=== PATIENT | female | born 1950 | race Caucasian/White ===

== ENCOUNTER → 2018-05-31 | Outpatient (CLI) | payer MEDICARE, SELFPAY ==
--- NOTE | 2018-05-31 09:55 | RAD_ITS ---
STUDY: X-RAY - LEFT KNEE REASON FOR EXAM: Arthritis. TECHNIQUE: 4 view(s) of the knee. COMPARISON: None. FINDINGS: Normal visualized distal femur. Normal visualized proximal tibia and fibula. Normal proximal tibiofibular articulation. There are marginal osteophytes and severe joint space narrowing of the medial femorotibial compartment. Normal lateral femorotibial compartment. There are marginal osteophytes and mild joint space narrowing of the patellofemoral articulation. There is mild vascular calcification. RAD/Knee 4 or More Views IMPRESSION: Arthrosis of the medial femorotibial and patellofemoral compartments. Electronically Signed: Ronn Tinsley MD at 15:23 EDT Tel , Service support ,
== END | disposition home or self-care (01) ==
LOC: HPRAD 09:55
PROVIDERS: Family Provider Internal Medicine; PCP Internal Medicine; Referring Provider Orthopaedic Surgery; Visit Provider Orthopaedic Surgery
DX: M17.12 Unilateral primary osteoarthritis, left knee (principal)
CPT/HCPCS: 73564

== ENCOUNTER 2018-10-05 08:30 | Outpatient (RCR) | payer MEDICARE, SELFPAY ==
--- NOTE | 2018-03-15 18:39 | HP.OTEVAL ---
Patient's Visit Information KAR HODGE is a 67 year old F, referred to Occupational Therapy by Scotty Thomas, with a diagnosis of trigger finger R middle. Date of Evaluation: 03/15/18 Occupational Therapist: Kendra Chawla - Subjective Subjective: Pt seen for initial occupational therapy evaluation for trigger finger R middle finger and R ring finger. Pt had trigger finger release 03/07/18 to R middle finger and R ring finger as well as removal of ganglion cyst R forearm. Pt is left hand dominent however uses her right hand frequently for functional living tasks. Indep w/ BADLs/IADLs. Pt is very active and wants to get all her ROM and strength back in her right hand to complete BADL/IADLs and hobbies as prior. - Objective Objective/Observation: pt has sutters in R hand and forearm, pt demo slight edema R wrist/forearm. Pt demo decreased flexion R digits and decreased ability to make composite fist. - ROM Wrist: R 65/92 L 67/93 MP: R ring -2/72, R middle 0/74, L ring 0/95, L middle 0/95 PIP: R ring -3/69, R middle 0/73, L ring 0/100, L middle 0/105 DIP: R ring 0/23, R middle 0/30, L ring 0/67, L middle 0/70 - Strength Phd Intern: R DNT, L 55# Lateral Pinch: R DNT, L 10# Tripod Pinch: R DNT, L 8# - Edema Other: slight edema noted R hand and R wrist - Sensation Sensation Comments: No numbness or tingling - Quick DASH-Disab of Arm,Shoulder& Hand Quick DASH Score: 72.7250 - Goals Goal:: Pt will progress with R hand heat and vent aircraft mechanic strength to 50# to assist with abilty to open all containers and complete BADLs independently. Goal:: Pt will progress w/ R ring finger AROM MP joints by 20' to increase abilty to make composite fist. Pt will progress w/ R middle finger AROM MP joints by 20' to increase ability to complete all functional living tasks independently. Goal:: Pt will demo no pain greater than 1/10 in R hand by d/c from OT services with movement. Goal:: Pt will be educated on scar massage and scar mngmt techniques with good understanding and demo 100%x Goal:: Pt will be educated on R UE HEP with good understanding and demo 100%x - Rehabilitation General Assessment: Pt demo decreased AROM and strength of R hand. Pt would benefit from direct occupational therapy services to increase AROM R digits, increase R hand heat and vent aircraft mechanic strength, educate on scar mngmt techniques, educate on R UE HEP to increase pt's ability to return to PLOF and get back to hobbies. Rehabilitation Potential: Excellent - Anticipated Interventions Anticipated Interventions: A/AAROM/PROM, Strengthening, Edema Control, Scar Care, Massage, Modalities, Orthoses, Joint Protection/Energy Conservation, Fine Motor Coord/Jesús, ADL Training, Education re Self-Bandaging Techniques, Education re Skin Care and Precautions, Education re Self Massage Techniques, Education re Correct Donning Tech,Care&Wearing Sched Comp Garments, Home Program - Visit Plan Frequency: 1-2x /Week Duration: 6 Weeks General Plan: Pt would benefit from direct occupational therapy services to increase AROM R digits, increase R hand heat and vent aircraft mechanic strength, educate on scar mngmt techniques, educate on R UE HEP to increase pt's ability to return to PLOF and get back to hobbies. TEXT: Thank you for the opportunity to evaluate your patient. For Medicare and Medicare HMO plans, please review the plan of care and approve it. It will need to be FAXED BACK to us at [phone] for Medicare purposes. Please let me know if there are questions or concerns regarding this plan of care. Physician Signature: Date:
--- NOTE | 2018-04-12 07:55 | HP.OTREVAL ---
Scotty Thomas, It has been my pleasure to treat KAR HODGE over the last 9 visits for trigger finger R middle. Please see the progress note below for an update on the occupational therapy plan of care! Subjective: pt arrives stating her finger is just very stiff- today- states she is doing everything she can do with her hand. pt reports she is perfoming her ADLs and IADls ind. and performing her HEP Objective/Function: right RF DIP 60. right RF PIP 95. right electron beam machine welder setter strength 45#. pts ROM of RF varies about 5 degress. pt has made great gains in use of her right hand. Plan Visits in this POC: 12 Plan: pt to return to for possible d/c Goals - Goals Goal:: Pt will progress with R hand electron beam machine welder setter strength to 50# to assist with abilty to open all containers and complete BADLs independently. Goal:: Pt will progress w/ R ring finger AROM MP joints by 20' to increase abilty to make composite fist. Pt will progress w/ R middle finger AROM MP joints by 20' to increase ability to complete all functional living tasks independently. Goal:: Pt will demo no pain greater than 1/10 in R hand by d/c from OT services with movement. Goal:: Pt will be educated on scar massage and scar mngmt techniques with good understanding and demo 100%x Goal:: Pt will be educated on R UE HEP with good understanding and demo 100%x Anticipated Interventions Anticipated Interventions: A/AAROM/PROM, Strengthening, Edema Control, Scar Care, Massage, Modalities, Orthoses, Joint Protection/Energy Conservation, Fine Motor Coord/Jesús, ADL Training, Education re Self-Bandaging Techniques, Education re Skin Care and Precautions, Education re Self Massage Techniques, Education re Correct Donning Tech,Care&Wearing Sched Comp Garments, Home Program Please do not hesitate to contact me at [phone] by phone or if you have questions or concerns regarding this new plan of care! Sincerely, Isadora Connell, OTR/L, CHT
--- NOTE | 2018-09-30 10:54 | HP.OT.NRP ---
HP - Discharge Summary - Patient Information KAR HODGE was seen in my office for initial evaluation on 03/15/18. The following Plan of Care was established for this patient: Initial Frequency: 1-2x /Week Initial Duration: 6 Weeks Plan: cont w/ prior POC - Anticipated Interventions Anticipated Interventions: A/AAROM/PROM, Strengthening, Edema Control, Scar Care, Massage, Modalities, Orthoses, Joint Protection/Energy Conservation, Fine Motor Coord/Jesús, ADL Training, Education re Self-Bandaging Techniques, Education re Skin Care and Precautions, Education re Self Massage Techniques, Education re Correct Donning Tech,Care&Wearing Sched Comp Garments, Home Program This patient was last seen in our office 05/05/18. Pertinent comments regarding their Occupational therapy will appear below: Pt last seen for OT 05/05/18. Pt was making good progress with R hand flexion and following R UE HEP. Pt did not meet all goals secondary to non returning. D/C OT POC. At this point I will be discontinuing this patient from occupational therapy. I would be happy to see this patient again in the future if found appropriate by the physician. Thank you! Kendra Chawla
--- NOTE | 2018-10-11 18:49 | HP.OTREVAL ---
Scotty Thomas, It has been my pleasure to treat KAR HODGE over the last 14 visits for trigger finger R middle. Please see the progress note below for an update on the occupational therapy plan of care! Subjective: arrived showing therapist increased swelling in R hand that she is very frustrated with limiting her ability to wear jewelry and move hand as she would like with decreased strength of her dominent hand. no pain Objective/Function: Pt demonstrates decreased computer information science professor strength of R hand down to 25# and L computer information science professor strength 65#. Pt demo increased edema of R hand and digits, R RF 7.5', R MF 8', palm 21'. Pt would benefit from direct occupational therapy serivices to continue to increase R hand strength for BADLs and functional living tasks, decrease edema R hand with use of modalities as needed. EDucate pt on self massage technqies and edema control for at home w/ good understanding. Rec OT 2-3x/wk x 2 wks total 6 visits. Plan Frequency: 2-3x /Week Duration: 2 Weeks Visits in this POC: total 6 visits Plan: see re-eval Goals - Goals Goal:: Pt will progress with R hand computer information science professor strength to 50# to assist with abilty to open all containers and complete BADLs independently. Goal:: Pt will progress w/ R ring finger AROM MP joints by 20' to increase abilty to make composite fist. Pt will progress w/ R middle finger AROM MP joints by 20' to increase ability to complete all functional living tasks independently. Goal:: Pt will demo no pain greater than 1/10 in R hand by d/c from OT services with movement. Goal:: Pt will demo decreased edema R RF and MF by .5' to assist w/ ability to wear rings on fingeres again. Goal:: Pt will be educated on scar massage and scar mngmt techniques with good understanding and demo 100%x Goal:: Pt will be educated on R UE HEP with good understanding and demo 100%x Anticipated Interventions Anticipated Interventions: A/AAROM/PROM, Strengthening, Edema Control, Scar Care, Massage, Modalities, Orthoses, Joint Protection/Energy Conservation, Fine Motor Coord/Jesús, ADL Training, Education re Self-Bandaging Techniques, Education re Skin Care and Precautions, Education re Self Massage Techniques, Education re Correct Donning Tech,Care&Wearing Sched Comp Garments, Home Program Please do not hesitate to contact me at [phone] by phone or if you have questions or concerns regarding this new plan of care! Sincerely, Kendra Chawla
--- NOTE | 2018-12-08 11:27 | HP.OT.NRP ---
HP - Discharge Summary - Patient Information KAR HODGE was seen in my office for initial evaluation on 03/15/18. The following Plan of Care was established for this patient: Initial Frequency: 2-3x /Week Initial Duration: 2 Weeks Plan: see re-eval - Anticipated Interventions Anticipated Interventions: A/AAROM/PROM, Strengthening, Edema Control, Scar Care, Massage, Modalities, Orthoses, Joint Protection/Energy Conservation, Fine Motor Coord/Jesús, ADL Training, Education re Self-Bandaging Techniques, Education re Skin Care and Precautions, Education re Self Massage Techniques, Education re Correct Donning Tech,Care&Wearing Sched Comp Garments, Home Program This patient was last seen in our office 10/05/18. Pertinent comments regarding their Occupational therapy will appear below: Pt last seen 10/05/18 for re-eval for OT services, to decrease edema and increase strength and ROM of R hand. Pt had returned to dr and stated its still healing. D/C OT services at this time. At this point I will be discontinuing this patient from occupational therapy. I would be happy to see this patient again in the future if found appropriate by the physician. Thank you! Kendra Chawla
== END 2018-10-05 19:00 | disposition home or self-care (01) ==
LOC: OT 08:30
PROVIDERS: Family Provider Internal Medicine; PCP Internal Medicine; Referring Provider Orthopaedic Surgery; Visit Provider Orthopaedic Surgery
DX: M65.331 Trigger finger, right middle finger (principal)
CPT/HCPCS: 97035; 97110; 97140; 97166; 97167; 97168; 97530

== ENCOUNTER → 2018-12-31 08:45 | Outpatient (CLI) | payer MEDICARE, SELFPAY ==
[2018-12-31 06:34] VITALS: BMI 34.2
--- NOTE | 2018-12-31 08:45 | LIP_PTH ---
PATIENT: KAR HODGE LOC: INGE U#:[id number] AGE/SX: 74/F ROOM: RE12/31/[address]: Dr. Edmundo Aranda MD : 1950 BED: DIS: SPEC #: [id number] RECD: 01/02/19 07:41 STATUS: MICHELLE SEGUNDO #: [id number] TRINA: 12/31/18 08:[address]: Edmundo Aranda DEPT: SURGICAL PATHOLOGY RECD BY: Crispin Garcia ENTERED: 01/02/19 09:38 SP TYPE: LIPOMA OTHR DR: Dr. Rosina Johnson MD Tissues: Wrist, NOS Procedures: Surgery Specimen Level III HEADER OPERATION: Excision left wrist lipoma PRE-OP DIAGNOSIS: Left wrist lipoma TISSUE SUBMITTED: Left wrist tissue MICROSCOPIC DIAGNOSIS Left wrist lipoma, excision: Mature adipose tissue, consistent with lipoma. SJ:marisol 01/03/19 MICROSCOPIC DESCRIPTION Slides are reviewed. GROSS DESCRIPTION Received in fixative is one container labeled with the patient's name and designated left wrist lipoma. The specimen consists of an irregular piece of yellow adipose tissue measuring 4 x 3 x 1.5 cm. Sections reveal yellow adipose cut surfaces without area of hemorrhage, necrosis or cystic degeneration. Railroad Yard Worker sections are submitted in two cassettes. / SJ:marisol 01/02/19 TC:1 CPT: 06815
== END ==
PROVIDERS: Family Provider Internal Medicine; PCP Internal Medicine; Visit Provider Surgery
DX: D17.22 Benign lipomatous neoplasm of skin and subcutaneous tissue of left arm (principal)
CPT/HCPCS: 88304

== ENCOUNTER → 2019-01-02 09:45 | Outpatient (CLI) | payer MEDICARE, SELFPAY ==
[2018-12-31 06:34] VITALS: BMI 34.2
== END ==
PROVIDERS: Family Provider Internal Medicine; PCP Internal Medicine; Referring Provider Surgery; Visit Provider Surgery
DX: D17.22 Benign lipomatous neoplasm of skin and subcutaneous tissue of left arm (principal)

== ENCOUNTER → 2019-01-24 12:59 | Outpatient (CLI) | payer MEDICARE, SELFPAY ==
[2018-12-31 06:34] VITALS: BMI 34.2
--- NOTE | 2019-01-24 13:01 | RAD_ITS ---
STUDY: X-RAY - ABDOMEN/PELVIS REASON FOR EXAM: Female, 68 years old. History of bowel obstruction. TECHNIQUE: AP supine and upright views of the abdomen and pelvis. COMPARISON: None. FINDINGS: Mild increased markings at the lung bases suggestive of bibasilar atelectasis and/or infiltrates. Dilated small bowel loops in the right side of the abdomen with the air-fluid levels. Moderate amount of fecal material is seen in the colon down to the region of the rectum. There is no demonstrated free abdominal air. The visualized liver, spleen and kidneys are grossly normal in size and morphology. Normal soft tissue structures. There are diffuse degenerative changes of the visualized lumbar spine. RAD/Abd Inc Decub and/or Erect IMPRESSION: Dilated small bowel loops in the right side of the abdomen with air-fluid levels. Fecal material is seen throughout the colon. Increased markings at the lung bases suggestive of bibasilar atelectasis and/or infiltrates. Electronically Signed: Vipul Mercedes, at 14:25 EST , Service support ,
== END ==
PROVIDERS: Family Provider Internal Medicine; PCP Internal Medicine; Referring Provider Surgery; Visit Provider Surgery
DX: K56.609 Unspecified intestinal obstruction, unspecified as to partial versus complete obstruction (principal)
CPT/HCPCS: 74019

== ENCOUNTER 2019-01-25 14:13 | Inpatient (IN) | payer MEDICARE, SELFPAY ==
--- NOTE | 2019-01-24 07:04 | HP_ITS ---
Intake Vital Signs 01/24/19 Body Mass Index (BMI) 34.2 01/24/19 Height 5 ft 9 in 01/24/19 Weight: 235 lb 01/24/19 Body Mass Index (BMI) 34.7 01/24/19 Blood Pressure 153/74 H 01/24/19 Blood Pressure Location Rt brachial 01/24/19 Blood Pressure Position Sitting 01/24/19 Respiratory Rate 18 01/24/19 Pulse Rate 82 01/24/19 Pulse Source Monitor 01/24/19 Temperature 97.8 F 01/24/19 Temperature Source Oral 01/24/19 Pulse Ox 99 01/24/19 Oxygen Delivery Method room air Intake Visit Reasons: bowel obstruction Chief Complaint: Follow up bowel obstruction Reefer Engineer Required: No Accompanied by: Is patient in pain?: No Allergies No Known Allergies Allergy (Verified 01/24/19 14:05) Medications naproxen 500 mg tablet 500 mg PO Q12H 04/26/17 [History Confirmed 01/24/19] hydrochlorothiazide 25 mg tablet 25 mg PO DAILY 10/23/18 [History Confirmed 01/24/19] multivitamin capsule 1 cap PO DAILY 01/24/19 [History] omega-3 fatty acids 500 mg capsule 500 mg PO DAILY 01/24/19 [History Confirmed 01/24/19] PFSH Medical History (Updated 01/24/19 @ 19:01 by Edmundo Aranda MD) Partial small bowel obstruction (Acute) Lipoma of left forearm (Acute) Bowel obstruction (Acute) Arthritis (Acute) Hemorrhoids (Acute) Knee pain (Acute) Surgical History (Updated 01/24/19 @ 14:23 by Nikole Pretty) History of umbilical hernia repair (Acute) History of appendectomy (Acute) Hx of cholecystectomy (Acute) Family History Father Diabetes Parkinson disease Social History (Updated 01/24/19 @ 19:04 by Edmundo Aranda MD) Smoking Status: Former smoker alcohol intake: current alcohol intake frequency: a few times a month Alcohol type: wine details: social substance use type: does not use caffeine: Yes what type of physical activity do you participate in: walking seatbelt use: always do you feel safe at home: Yes HPI HPI HPI: KAR HODGE, is a 68 F who presents to the office today for HPI HPI Surgical H&P: Yes HPI: KAR HODGE, is a 68 F who presents to the office today for surgical consultation regarding small bowel obstruction. Primary care physician is Dr. Rosina Johnson. The patient was hospitalized in the [facility] with 4 days with acute onset of abdominal pain nausea. Findings were consistent with acute small bowel obstruction with particular dilated loops of bowel in the right lower quadrant. No NG tube was placed. She was observed for over 24 hours. Then she finally had a Gastrografin exam showing high-grade partial obstruction. She was observed for another 2 days. Symptoms somewhat improved then she was discharged on clear liquids instruction to continue to drink clear liquids for 2 days. The patient's had a previous lap scopic cholecystectomy and her previous remote appendectomy through a right lower quadrant incision. She is up-to-date with her colonoscopy. That was performed for her on November 03, [address] Chey Harrington. Diverticulosis was noted in the sigmoid. It was stated that the appendiceal orifice and ileocecal valve was inspected. There is no evidence of tumor at that time. Now upon further questioning the patient is evident that she does not feel normal yet. The pain is gone but she still has persistent tenderness in the right lower quadrant. Abdominal x-rays are obtained at the [facility] today demonstrates dilated loops of small bowel with air-fluid levels in the right lower quadrant. This is highly suspicious for persistent obstruction. The patient now states that she actually has not been feeling well for approximately a month with intermittent episodes of abdominal pain and cramping. Information from [facility] in [facility] January 17, [address] scan with fluid-filled dilated small bowel loops consistent with incomplete mechanical small bowel obstruction mildly enlarged mesenteric lymph nodes in the right lower quadrant trace free peritoneal fluid severe sigmoid diverticulosis. On January 21, 2019 plain films show slight decreased caliber of air-fluid dilated loops of small bowel impression with slight improvement. The patient had a very small bowel movement last night. There is been no nausea or vomiting. She notes persistent tenderness in the right lower quadrant. Sitting resting still she has no abdominal pain. There is no current nausea. She has been able to tolerate clear liquids ROS General General: Yes weight change and fatigue; no appetite, colon cancer, breast cancer or weakness HEENT HEENT: No difficulty swallowing, eye injury, eye surgery, swollen glands or hoarseness Endo Endocrine: No thyroid disease, diabetes mellitus, thyroid cancer, Hair loss, heat intolerance or cold intolerance Skin Skin: No rash or changing moles Breast Breast: No left breast lump, right breast lump, nipple discharge, breast pain, abnormal mammogram, abnormal US or breast enlargement Musc Musculoskeletal: Yes arthritis; no back problems, rheumatoid arthritis, gout or joint pain Cardio Cardiovascular: No murmur, pacemaker, heart disease, atrial fibrillation, high blood pressure, heart attack, heart stent, palpitations, shortness of breat with exertion or chest pain Psych Psychiatric: No depression, anxiety or hearing voices Resp Respiratory: No shortness of breath, No sleep apnea, No cough, No COPD, Yes asthma, No emphysema, No wheezing Gastro Gastrointestinal: Yes abdominal pain, No nausea or vomiting, No diarrhea, No constipation, No blood in stool, No acid reflux, Yes hemorrhoids, No ulcers, No gallbladder problem, No black,tarry stools Thomas Hematologic: No blood thinners, No blood disorders, No bleeding, No anemia, No blood clots Neuro Neurologic: No system reviewed and no additional complaints, except as docu, No as per HPI, No abnormal walking, No abnormal hearing, No abnormal movements, No abnormal speech, No behavioral changes, No burning sensations, No confusion, No seizure-like activity, No unsteadiness, No dizziness, No localized weakness, No frequent falls, No headache(s), No lack of coordination, No loss of vision, No memory loss, No numbness, No other visual disturbances, No radiating pain, No restless legs, No sensory deficit, No fainting, No tingling, No tremor(s), No weakness, No other Exam Const General: cooperative, healthy appearing, comfortable, no acute distress Nutritional Appearance: obese Orientation: alert, awake [place] Head: normal to inspection Chest Chest palpation & inspection: normal inspection of the chest Breast Palpation: No nipple discharge Resp Effort & Inspection: normal respiratory effort Auscultation: clear to auscultation bilaterally Cardio Rate: regular rate Rhythm: regular rhythm Heart Sounds: no murmurs GI Palpation: soft Other: Occasional tinkles, mild tenderness to deep palpation right lower quadrant, no rebound or guarding, no mass, no gross inguinal defects, well- healed umbilical incision and right lower quadrant incision Other: No gross inguinal defects Skin General: no rashes or lesions noted Neuro Cognition: normal cognition Extrem General: no calf tenderness bilaterally Psych Affect: normal affect Assessment & Plan Problems 1. Partial small bowel obstruction K56.600 Plan 67-year-old female with signs and symptoms consistent with non-resolved partial small bowel obstruction with findings highly suspicious for adhesive disease right lower quadrant. She does not appear to be an acute surgical distress requiring emergency operation tonight. However it also does not appear that she is completely resolving her symptom complex. After divulging that she has been sick for over a month prior to the acute episode I have significant concern that she will not completely resolve this episode. I recommend that we obtain tomorrow a barium small bowel follow- through in attempt at further definition is the possible etiology to this process. I have alerted the patient that I am strongly concerned that she will require a diagnostic laparoscopy with possible laparoscopic lysis of adhesions or possible conversion to an open technique. She is aware of the potential need for bowel resection as well. She has had an opportunity to ask and have questions answered. She will stay on clear liquids tonight we will obtain the small bowel follow-through first thing tomorrow morning. We will proceed with surgery if it is deemed to be appropriate tomorrow. I appreciate the opportunity of assisting with her surgical care. CC: Dr. Rosina Aranda M.D., F.A.C.S. Orders Orders: Abd Inc Decub and/or Erect Today K56.609 Upper GI/w Small Bowel Today K56.609 Medications New: omega-3 fatty acids 500 mg PO DAILY multivitamin capsule 1 cap PO DAILY Coding Level of Care Code Off vis,est,level 4 Diagnoses Partial small bowel obstruction K56.600 01/24/191903 <Electronically signed by Edmundo pierre MD> Date _ Edmundo Aranda MD Barium small bowel follow-through was obtained today. Findings are consistent with persistent significant partial small bowel obstruction. The patient remains tender particularly in the right lower quadrant of the abdomen. I have fully discussed treatment options with the patient and her . I am recommending a laparoscopy with conversion to laparotomy for inspection as potential source of adhesions or internal hernia source of persistent obstruction. She has had an opportunity to ask and have questions answered. She is direct admitted and we will proceed directly with definitive surgical treatment. Edmundo Aranda M.D., F.A.C.S.
[2019-01-24 14:08] VITALS: BMI 34.2
[2019-01-25] VITALS (7 sets, daily range): BP systolic 95–135; BP diastolic 54–82; PULSE 57–76; RESP 14–16; TEMP 36.1–36.8; O2SAT 89–99; BMI 34.5
--- NOTE | 2019-01-25 | IMM_PTH ---
PATIENT: KAR HODGE LOC: MS3 U#:[id number] AGE/SX: 68/F ROOM: MS309 RE01/25/[address]: Dr. Edmundo Aranda MD : 1950 BED: 1 DIS: 01/28/2019 SPEC #: [id number] RECD: 01/30/19 12:04 STATUS: MICHELLE REQ #: [id number] TRINA: 01/25/19 00:[address]: Edmundo Aranda DEPT: IMMUNOHISTOCHEMISTRY RECD BY: Beverly Kovacs ENTERED: 01/30/19 12:08 SP TYPE: IMMUNO OTHR DR: Dr. Rosina Johnson MD Tissues: Colon, NOS Procedures: Synapto (add) NAPSIN A (add) CD31 (add) CD56 (add) CEA (add) CHROMO (add) CK20 (add) CK7 (add) CK8 (add) VORA-2 (add) KI-67 (add) P53 (add) TTF1 (add) FACTOR VIII (add) Pankeratin (initial) CDX2 (add) NSE (add) S-100 (add) PHYSICIAN & INSTITUTION [place] [id number] SPECIMEN INFORMATION: Tissue Source: Ileocolotomy Clinical Info: Partial small bowel obstruction Specimen Number: [id number] Block 9 CPT code: 38121, 39509 x17 METHODOLOGY: Deparaffinized sections of prefer/formalin-fixed tissue or PAP/DQ stained slides are incubated with monoclonal/polyclonal antibodies/oligonucleotide probes. Localization is made via biotin free immunoperoxidase method. Appropriate controls are performed and reacted as expected. Results on target cell population are indicated in the following table: RESULTS: ANTIBODY / CLONE RESULT Block 9 AE1-3 (AE1/AE3/PCK26) positive CK7 (OV-TL12/30) negative CK8 (86lsopO76) positive CK20 (KS20.8) negative VORA-2 (SP21) positive CDX2 (MON6163X) positive CD31 (ABELARDO/70A) negative Factor VIII (R Ag) negative S-100 (4C4.9) negative CD56 (123C3.D5) positive Chromo (LK2H10) positive Synapto (polyclonal) positive NSE Neuron Specific Enolase positive TTF-1 (8G7G3/1) negative Napsin A (Rabbit Polyclonal) negative CEA (11-7/TF-3HB-1) negative P53 (DO-7) negative Ki-67 (30-9) positive, 1% to rare These tests were developed and their performance characteristics determined by [facility]. They may not have been cleared or approved by the U.S. Food and Drug Administration. The FDA has determined that such clearance or approval is not necessary. The above immunohistochemical/dualISH markers are ordered and reviewed by the Pathologist. INTERPRETATION: Small bowel, segmental resection: Consistent with neuroendocrine tumor G1 (NET G1 tumor) AM:nixon 01/31/19
--- NOTE | 2019-01-25 08:35 | RAD_ITS ---
STUDY: AIR-CONTRAST UPPER GI SERIES AND SMALL BOWEL FOLLOW-THROUGH EVALUATION. REASON FOR EXAM: Female, 68 years old. Possible small bowel obstruction. FLUOROSCOPY TIME (if supplied): ( 42 seconds ) minutes/seconds. 34 images were obtained. TECHNIQUE: The patient ingested barium. An air contrast upper GI series was obtained. Following this, a small bowel follow-through examination was performed. COMPARISON: None. FINDINGS: The esophagus is unremarkable. There is no evidence of obstruction. No evidence of gastroesophageal reflux. Small hiatal hernia without reflux. No mass lesion is seen. The stomach is unremarkable. There is no evidence of ulceration. No mass lesion is present. 2 small diverticula are seen in the second portion of the duodenum. A small bowel follow-through examination was then obtained. There is delay of transit within the small bowel. The proximal small bowel loops are minimally distended although the mid and distal small bowel loops are distended. The transition point appears to be within the distal jejunum. A small amount of gas is seen within the right hemicolon and rectum. Findings are suggestive of incomplete small bowel obstruction. RAD/Upper GI/w Small Bowel IMPRESSION: Findings suggestive of a partial small bowel obstruction with the transition point in the region of the distal jejunum. Small diverticula are seen in the second portion of the duodenum. Electronically Signed: Vipul Mercedes, at 14:56 EST , Service support ,
[2019-01-25 14:10] LABS: Hematocrit 42.9 % (37-47); Hemoglobin 14.6 g/dL (12.0-15.0); Mean Corpuscular Hgb 29.3 pg (27.0-32.0); Platelet Count 270 K/mm3 (150-450); RBC Distribution Width CV 13.3 % (11.6-14.6); RBC Distribution Width SD 41.2 fl (35.1-43.9); Red Blood Count 4.99 M/mm3 (4.2-5.4); White Blood Count 6.6 K/mm3 (4.4-11.0)
[2019-01-25 14:21] LABS: Anion Gap 4 (5-15); BUN 6 mg/dL (7-18); BUN/Creat Ratio 8.8 RATIO (10-20); Calcium,Total 9.1 mg/dL (8.5-10.1); Chloride 108 mmol/L (98-107); Creatinine, Serum 0.68 mg/dL (0.55-1.02); EST Glomerular Filtration Rate 91 mL/min (>60); Est Glom Filt Rate - Afr Amer 110 mL/min (>60); Glucose 89 mg/dL (74-106); Potassium 3.3 mmol/L (3.5-5.1); Sodium Level 141 mmol/L (136-145)
--- NOTE | 2019-01-25 14:22 | PCM.PN.BLA ---
Progress Note Patient presented for an outpatient upper GI with small bowel follow. Images demonstrate a high-grade partial small bowel obstruction. Patient was discussed with Dr. Aranda, who is recommending direct admit and add-on for a diagnostic laparoscopy with possible laparoscopic lysis of adhesions or possible conversion to an open technique and possible bowel resection today. Patient to have STAT CBC and BMP and EKG. Patient also to have NG tube placed prior to surgery. Patient does note that she had a solid small bowel movement last night. She has had nothing to eat or drink other than the Barium today. Patient will proceed with the recommended surgical procedure as discussed at yesterday outpatient office visit. Patient is agreeable and has no further questions at this time. Or has been notified appropriately. Dr. Aranda has been updated with the active plan. Radiology is updated with the current plan. And I have spoke to patient's nurse, Bg, who is aware of the plan.
[2019-01-25] MEDS: Lactated Ringers 1,000 ML 100 ML IV ×3 (15:06→20:46)
--- NOTE | 2019-01-25 16:09 | DCINST_ITS ---
Discharge Diet: Light diet - advance as tolerated - if you have questions about your diet instructions, please talk to you doctor. Discharge Activity: May Not Drive - for 3-5 days or while taking narcotic pain medicine. May shower in (days): 0 - You may shower after your Lopez drain is removed Lifting Restrictions: 10 pounds Call your doctor if your incision/area has: Continuous Slow Oozing, Sudden Increased Bleeding, Increased Pain/ Swelling, Increased Redness, Foul Smelling Discharge Call your doctor if you observe: Fever of 101 or Higher Suture Line Care: Avoid Pulling/Pushing, Avoid Pinching/Bending Additional Dressing/Incision Instructions:: Change or remove dressing in 2 days. Leave steri-strips in place for 1 week. Allergies/Adverse Reactions: Allergies No Known Allergies Allergy (Verified 01/25/19 14:40) Medications to take at Discharge naproxen 500 mg tablet 500 mg PO Q12H 04/26/17 hydrochlorothiazide 25 mg tablet 25 mg PO DAILY 10/23/18 multivitamin capsule 1 cap PO DAILY 01/24/19 Krill/Om-3/Dha/Epa/Phospho/Ast [Krill Oil 500 mg Softgel] 500 mg PO DAILY 01/25/19 Primary Care Physician: Rosina Johnson MD [Primary Care Provider] - Test Results: Test results from this visit will be discussed in further detail at your follow- up appointment, if applicable. Please Follow Up With: Edmundo Aranda MD - [phone] When: Call to make an appointment to be seen in about 10 days.
--- NOTE | 2019-01-25 16:35 | COL_PTH ---
PATIENT: KAR HODGE LOC: MS3 U#:[id number] AGE/SX: 68/F ROOM: MS309 RE01/25/[address]: Dr. Edmundo Aranda MD : 1950 BED: 1 DIS: 01/28/2019 SPEC #: [id number] RECD: 01/26/19 08:36 STATUS: MICHELLE RAYMOND #: [id number] TRINA: 01/25/19 16:[address]: Edmundo Aranda DEPT: SURGICAL PATHOLOGY RECD BY: Srinivas Jin ENTERED: 01/26/19 10:45 SP TYPE: COLON OTHR DR: Dr. Rosina Johnson MD Tissues: Small intestine biopsy Procedures: Surgery Specimen Level V HEADER OPERATION: Exploratory laparoscopic mobilization of right colon PRE-OP DIAGNOSIS: Partial small bowel obstruction K56.600 TISSUE SUBMITTED: Ileocolectomy MICROSCOPIC DIAGNOSIS Small and large bowel segment, ileocolectomy: Neuroendocrine tumor. See cancer check list below. AM:sp 01/31/19 COMMENT SMALL BOWEL CANCER SUMMARY: (Ileum neuroendocrine tumor) Procedure: Ileocolic resection Tumor Site: Ileum Tumor Size: 3.5 x 1.5 x 1.5 cm Tumor Focality: Unifocal Histologic Grade: G1 (well-differentiated neuroendocrine tumor) Mitotic Rate: Less than 2 mitosis per 2 mm2. Ki67 Labeling Index: Less than 3% Microscopic Tumor Extension: Tumor invades visceral peritoneum (serosa). Margins: All margins are uninvolved by tumor Margins examined - proximal and distal mucosal margins Lymph-Vascular Invasion: Present Large mesenteric masses (greater than 2 cm): Not identified. Regional Lymph Nodes: Number of lymph nodes involved by tumor - 14 Total number of lymph nodes examined - 22 Additional Pathologic Findings: Mesenteric tumor deposits - less than 2 cm and matted lymph nodes with metastatic tumor. Pathologic Stage: T4, N2, MX The above summary is in compliance with [employer] of [place] Path[employer] (CAP) Cancer Protocols Checklist and [place] Joint Committee on Cancer (AJCC), Staging Manual, 7th Ed. Immunohistochemistry ([id number]) supports the above diagnosis. Case has been reviewed in consultation with Dr. Scott who concurs with the above diagnosis. IDC:SJ MICROSCOPIC DESCRIPTION Slides are reviewed. GROSS DESCRIPTION Received in fixative is one container labeled with the patient's name and designated ileocolectomy. The specimen consists of a 10 cm segment of small bowel with attached 6 cm of large bowel. The serosal surface at approximately 17 cm from the small bowel margin of resection displays a serosal nodule that is white-evans in color, measuring 1.5 cm in greatest dimension. The mucosal of the small bowel for the most part is grossly unremarkable. Located approximately 14 cm from the small bowel margin of resection and 8 cm from the large bowel margin of resection and 4 cm proximal to the ileocecal valve displays a yellow-evans, firm nodule measuring 3.5 x 1.5 x 1.5 cm. The lumen in area of the mass contains a calcified fecalith measuring 3 cm in greatest dimension. The lumen in this area is significantly narrowed (50%). An appendix is not identified. Also present free in the container is a segment of bowel measuring 6 cm in greatest dimension. The mucosa is smooth and glistening. No mass lesions are identified in this segment of bowel. The attached fibrofatty tissue contains a number of nodules that are firm in consistency. Insurance Healthcare Consultant sections are submitted as follows: 1 - mucosal margins, 2 - ileocecal valve, 3 - uninvolved small and large bowel, 4 - fragment of bowel free in container, branch service representative sections, 5 through 9 - one bisected subserosal nodule, 10 - one branch service representative section of one large subserosal nodule, 11 - multiple lymph nodes, 12 - one lymph node bisected, 13 - multiple lymph nodes, 14 - one lymph node bisected, 15 - multiple lymph nodes, 16 - one large subserosal nodule, matted lymph nodes. /AM:sp 01/27/19 TC: 0 CPT: 89353
[2019-01-25] MEDS: Bupivacaine 0.25% 30 ML Vial ×2 (19:00)
[2019-01-25] MEDS: BUPIVACAINE LIPOSOME/PF 20 ML VIAL OPERA.SITE (19:00)
[2019-01-25] MEDS: 0.9% Normal Saline (Pres. free 10 ML Vial (19:00)
--- NOTE | 2019-01-25 19:41 | OP.PCM_ITS ---
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 Bilateral tap block Description of Surgical Findings:: Timeout informed consent was obtained. 68-year-old female taken the operative placement table underwent general endotracheal intubation anesthesia. NG tube placed by anesthesia with good results. The abdomen sterilely prepped and draped. 0.25% Marcaine was initially used for local anesthetic. At the end of the procedure I utilized 0.25% Marcaine mixed with 20 cc of Exparel diluted with saline to approximately 90 cc of solution to perform a bilateral tap block Skin sites were pre-anesthetized a vertical infraumbilical incision was created sharp dissection carried down through substance to direct access was gained to the peritoneum and is on catheter was inserted the abdomen was insufflated with CO2 to a pressure of 10 minutes mercury pressure. The patient had received 2 g of cefotetan intravenously preoperatively. Inspection revealed grossly distended small bowel throughout. 5-minute trocar was placed in the low mid abdomen and in the right mid abdomen patient was placed in a right side elevated position with Trendelenburg and upon inspection there appeared to be what appeared to be a fixed firm mass at the terminal ileum close to the ileocecal valve. This appeared to be the source of the obstruction. Laparoscopically I mobilized the terminal ileum incised white line of Toldt and and freed up the ascending colon. At that point I felt due to the degree of bowel distention from her bowel obstruction that I would convert to a open. I made an infraumbilical midline incision and I placed a wound protector was able to palpate the lesion withdrew the terminal ileum and realized there was a metastatic firm deposit in the mesentery. I used a harmonic scalpel to transect the mesentery down to the root of the small bowel and over to about the mid right colon. Further mobilization of the right colon was hampered as she had had a previous cholecystectomy in the transverse colon proximally was adherent to the resection area. I did this much blunt dissection as I could. I used a DANIA-75 stapler to transect the terminal ileum and the ascending colon. I could not achieve an easy up anastomosis I had a lengthy my midline incision so that I could gain exposure. I then placed the small bowel side to side to the large bowel placed holding sutures of 4-0 silk made enterotomies. There was some succus with a small amount of barium that extruded there from that was rapidly aspirated. I used a 75 mm stapler to perform a functional xfog-io-jmar end-to-end anastomosis. I then used a TA's 60 stapler to secure the enterotomy sites. I did use a running 4-0 silk to further Lembert and invert the staple line. The bowel appeared to be nicely viable appeared to have a good blood supply was placed back within the abdomen. Then I closed the midline wound with a running #1 Prolene. On length skin incision superiorly I had to go through previous umbilical hernia repair site and I removed 0 Nurolon sutures that were there. I used the Prolene down a running fashion. I then reinsufflated the abdomen and we performed a bilateral tap block with the Exparel Marcaine and saline mixture. This was performed under lap scopic control bilaterally. Finally the abdomen was irrigated and aspirated free of fluid. Visualization challenging due to the edema of the small bowel swelling of the small bowel distention. I felt however that I got a good solid anastomosis. I felt that I remove the gross amount of disease focally at the tumor site with the suspected metastatic deposit in the mesentery. The patient had had a CT scan while she was hospitalized in [place] for this exact same problem which did demonstrate some enlarged lymph nodes of the mesentery. The abdomen is then allowed to deflate of CO2. Skin edges were approximate interrupted 4-0 Monocryl indicated. 1/4 inch Lopez drain was placed down the midline wound exited inferiorly and secured there with safety pin and 3-0 nylon. Steri-Strips Telfa OpSite dressings applied were appropriate. Dry gauze dressings applied to the abdomen. Sponge and instrument and needle counts were reported to surgically correct. Blood loss was minimal. She tolerated the procedure well was taken to the recovery area in satisfactory condition without apparent complication. Specimen includes the ileal colon. Drains quarter-inch Lopez in the midline wound subcutaneous space. Blood loss minimal. Edmundo Aranda M.D., F.A.C.S. Type of Anesthesia:: General Anesthesiologist: Jesse Perry
[2019-01-25] MEDS: Ketorolac 15 MG/ML Vial IV (22:00)
[2019-01-25] MEDS: Ondansetron 4 MG/2 ML Vial IV (22:00)
[2019-01-25] MEDS: 0.9% Saline Lock 10 ML Syringe IV (22:00)
[2019-01-26] VITALS (7 sets, daily range): BP systolic 101–129; BP diastolic 44–70; PULSE 66–90; RESP 16–18; TEMP 36.6–37.8; O2SAT 92–95; BMI 34.5
[2019-01-26] MEDS: Morphine 2 MG/ML Syringe IV ×2 (00:47→16:10)
--- NOTE | 2019-01-26 05:53 | PN.SURG_ITS ---
Patient Problems: Active and Suspected Problems (Last Updated 01/24/19 @ 14:02 by Nikole Pretty) Small intestine malignant neoplasm (Acute) Subjective: Pt doing well Concerned about acute shingles of forehead treated by Dr Wilson, dermatology, with acyclovir--places eye at risk Comfortable Walking, no flatus - Physical Exam Vitals/I&O's: Vital Signs Temp Pulse Resp BP Pulse Ox 97.8 F 81 16 112/44 L 92 01/26/19 05:07 01/26/19 05:07 01/26/19 05:07 01/26/19 05:07 01/26/19 05:07 Oxygen Flow Rate (L/min) 2 Oxygen Delivery Method Room Air Weight: 233 lb 14.567 oz Body Mass Index (BMI) 34.5 Intake and Output for Last 24 Hours 01/24/19 01/25/19 01/26/19 23:59 23:59 23:59 Intake Total 2200 / 2200 30 / 30 Output Total 200 / 650 450 / 450 Balance 2000 / 1550 -420 / -420 General: Alert, Oriented x3 Lungs: Clear to auscultation Abdomen: Soft, Non Tender, Bowel Sounds Not Present, Distended Laboratory Results 01/25/19 14:00: WBC 6.6, RBC 4.99, Hgb 14.6, Hct 42.9, MCV 86.0, MCH 29.3, MCHC 34.0, RDW Std Deviation 41.2, RDW Coeff of Charlie 13.3, Plt Count 270, MPV 10.0 01/25/19 14:00: Sodium 141, Potassium 3.3 L, Chloride 108 H, Carbon Dioxide 29.0, Anion Gap 4 L, BUN 6 L, Creatinine 0.68, Est GFR (MDRD) Af Amer 110, Est GFR (MDRD) Non-Af 91, BUN/Creatinine Ratio 8.8 L, Glucose 89, Calcium 9.1 Current Medications Acetaminophen (Tylenol) 650 mg PO Q6H PRN PRN PRN Reason: Pain Score 1-3/Temp > 100.7 F Hydrocodone Bitart/Acetaminophen (Solvang 5mg-325mg) 1 - 2 tablet PO Q4H PRN PRN PRN Reason: Pain Score 1-10/10 Lactated Ringer's () 1,000 mls @ 100 mls/hr IV .Q10H KALYAN Last Admin: 01/25/19 20:46 Dose: 100 mls/hr Documented by: Ketorolac Tromethamine (Toradol) 15 mg IV Q6H PRN PRN PRN Reason: Pain Score 1-10/10 Last Admin: 01/25/19 22:00 Dose: 15 mg Documented by: Morphine Sulfate () 2 - 4 mg IV Q1H PRN PRN PRN Reason: Pain Score 1-10/10 Last Admin: 01/26/19 00:47 Dose: 2 mg Documented by: Morphine Sulfate () 2 - 4 mg IV Q1H PRN PRN PRN Reason: Pain Score 1-10/10 Ondansetron HCl (Zofran) 4 mg IV Q8H PRN PRN PRN Reason: NAUSEA Last Admin: 01/25/19 22:00 Dose: 4 mg Documented by: Sodium Chloride () 10 - 40 ml IV UD PRN PRN Reason: SALINE FLUSH Last Admin: 01/25/19 22:00 Dose: 10 ml Documented by: Throat Lozenges (Cepacol Sore Throat Lozenge) 2 lozenge MUCOUS MEM Q2H PRN PRN PRN Reason: SORE THROAT Medical Necessity - Tobacco Use Smoking Status: Former smoker Assessment/Plan All Active Problems (Last Updated 01/24/19 @ 14:02 by Nikole Pretty) Small intestine malignant neoplasm (Acute) Partial small bowel obstruction (Acute) Lipoma of left forearm (Acute) Bronchitis (Acute) Sinusitis (Acute) Acute shingles forehead. Will treat. IV acyclovir on backorder Mobilize pt DC andrade Keep NGT for now
[2019-01-26] MEDS: Ketorolac 15 MG/ML Vial IV ×3 (06:14→20:11)
[2019-01-26] MEDS: Lactated Ringers 1,000 ML 100 ML IV ×2 (06:14→16:33)
[2019-01-26 06:16] LABS: Absolute Lymphocyte Count 0.91 X10^3/uL (0.83-4.51); Absolute Neutrophil Count 11.2 X10^3/uL (2.0-7.7); Basophil# 0.02 X10^3/uL; Basophil% 0.2 % (0-1); Hemoglobin 14.1 g/dL (12.0-15.0); Lymphocyte # 0.91 X10^3/ul (4.0); Lymphocyte % 7.1 % (19-41); Mean Corp Hgb Conc 34.4 g/dL (32-36); Mean Corpuscular Hgb 29.7 pg (27.0-32.0); Mean Corpuscular Volume 86.3 fL (81-99); Mean Platelet Vol. 10.8 fl (6.2-12.0); Monocyte# 0.54 X10^3/uL; Monocyte% 4.2 % (0-10); NRBC Flagged by Analyzer 0 % (0-5); Neutrophil # 11.24 X10^3/uL (2.7-7.7); Neutrophil % 88.1 % (47-70); Platelet Count 274 K/mm3 (150-450); RBC Distribution Width CV 13.4 % (11.6-14.6); RBC Distribution Width SD 41.7 fl (35.1-43.9); Red Blood Count 4.75 M/mm3 (4.2-5.4); White Blood Count 12.8 K/mm3 (4.4-11.0)
[2019-01-26 06:46] LABS: Anion Gap 10 (5-15); BUN 9 mg/dL (7-18); BUN/Creat Ratio 9.6 RATIO (10-20); Calcium,Total 8.5 mg/dL (8.5-10.1); Chloride 108 mmol/L (98-107); Creatinine, Serum 0.94 mg/dL (0.55-1.02); EST Glomerular Filtration Rate 63 mL/min (>60); Est Glom Filt Rate - Afr Amer 76 mL/min (>60); Estimated Creatinine Clearance 59.03 ml/min; Glucose 123 mg/dL (74-106); Potassium 3.4 mmol/L (3.5-5.1); Sodium Level 142 mmol/L (136-145)
--- NOTE | 2019-01-26 08:30 | NURSING ---
ng clamped and pt ambulatory in hallway after infection control checked status of pt possible shingles on forehead and cleared pt to be ambulatory in halls
[2019-01-26] MEDS: Acyclovir 800 MG Tablet NG (09:31)
[2019-01-26] MEDS: Potassium Chloride 10mEq/100mL 10 MEQ/100 ML IV.SOLN. 100 MEQ IV BOLUS ×3 (09:31→11:21)
[2019-01-26] MEDS: BENZOCAINE/MENTHOL 1 LOZENGE 2 LOZENGE MUCOUS MEM (09:33)
--- NOTE | 2019-01-26 11:00 | CASEMGMT ---
RN JOLEEN CATALOGUE COMPILER CM to room to meet with patient for initial transition planning/care coordination assessment. ALEX GOODRICH introduced self and role at [facility]. Pt voices understanding and consents to assessment at this time. Pt resting in bed in no distress at this time. @ bedside. Pt is A/O at this time and answers all questions appropriately. Care providers, pharmacy, and demographics verified at this time. PCP: Elizabeth Specialists: Manoj Figueroa Pharmacy: [facility] Insurance: [employer] [facility] Prescription Benefit: Yes Living Will/HPOA: Has both LW and HCPOA, who is her , Alexey. LNOK: , Alexey Living Arrangements: Independent prior to surgery. Lives with her , who is supportive and can assist as needed. Transportation: Pt states drives self and states no transportation concerns at this time. drives. DME: Denies using any DME and denies needs. HHC/SNF: No history of either. No needs identified. Pt wishes to return home and states has no concerns with going home at time of discharge. CM to follow for any discharge planning/needs. Pt/ voice no further concerns/needs at this time. Advised them to ask for CM if any further questions/concerns/needs arise. They voice understanding. Pt d/c plan: Home Plan: Home Day GARCIA RN, CM
--- NOTE | 2019-01-26 12:12 | NURSING ---
At start of shift this RN and Alicia, primary RN- spoke with Ness with infection control regarding proper isolation for active shingles. Also, concerned because we need patient to walk in hallways and want to be sure it is safe for others on the unit. Pt has 2 small dry areas to forehead and is currently on acyclovir. Determined that no isolation needed. Warning to those that have not had chicken pox or chicken pox vaccine is visible on door of patient's room.
--- NOTE | 2019-01-26 13:04 | NURSING ---
pt had low grade fever @ approx. 1110-encouraged to use I.S. and pt did, celsa ambulatory and up in hallway/chair temp now normal 99.0 ta
[2019-01-27 00:34] VITALS: BP 121/58; PULSE 89; RESP 16; TEMP 36.8; O2SAT 94
[2019-01-27] MEDS: Acetaminophen 650 MG/20 ML UDC NG (00:38)
[2019-01-27] MEDS: Lactated Ringers 1,000 ML 100 ML IV (02:25)
[2019-01-27 05:13] LABS: Absolute Lymphocyte Count 1.29 X10^3/uL (0.83-4.51); Basophil# 0.02 X10^3/uL; Basophil% 0.2 % (0-1); Eosinophil# 0.08 X10^3/uL; Eosinophils% 0.9 % (0-5); Hematocrit 35.5 % (37-47); Hemoglobin 12.1 g/dL (12.0-15.0); Lymphocyte # 1.29 X10^3/ul (4.0); Lymphocyte % 14.1 % (19-41); Mean Corp Hgb Conc 34.1 g/dL (32-36); Mean Corpuscular Hgb 29.7 pg (27.0-32.0); Mean Corpuscular Volume 87.2 fL (81-99); Mean Platelet Vol. 10.1 fl (6.2-12.0); Monocyte# 0.69 X10^3/uL; Monocyte% 7.5 % (0-10); NRBC Flagged by Analyzer 0 % (0-5); Neutrophil # 7.03 X10^3/uL (2.7-7.7); Neutrophil % 76.8 % (47-70); Platelet Count 216 K/mm3 (150-450); RBC Distribution Width CV 13.6 % (11.6-14.6); RBC Distribution Width SD 43.4 fl (35.1-43.9); Red Blood Count 4.07 M/mm3 (4.2-5.4); White Blood Count 9.2 K/mm3 (4.4-11.0)
[2019-01-27 05:31] LABS: Anion Gap 6 (5-15); BUN 13 mg/dL (7-18); Calcium,Total 8.1 mg/dL (8.5-10.1); Chloride 107 mmol/L (98-107); Creatinine, Serum 0.77 mg/dL (0.55-1.02); EST Glomerular Filtration Rate 79 mL/min (>60); Est Glom Filt Rate - Afr Amer 96 mL/min (>60); Estimated Creatinine Clearance 55.49 ml/min; Glucose 91 mg/dL (74-106); Potassium 3.2 mmol/L (3.5-5.1); Sodium Level 140 mmol/L (136-145)
--- NOTE | 2019-01-27 06:16 | PCM.PN.SRG ---
Patient Problems: Active and Suspected Problems (Last Updated 01/24/19 @ 14:02 by Nikole Pretty) Small intestine malignant neoplasm (Acute) Subjective: Patient generally feeling improved. She is starting to feel gas pains. She is becoming more mobile. No current nausea - Physical Exam Vitals/I&O's: Vital Signs Temp Pulse Resp BP Pulse Ox 98.3 F 89 16 121/58 H 94 01/27/19 00:34 01/27/19 00:34 01/27/19 00:34 01/27/19 00:34 01/27/19 00:34 Oxygen Flow Rate (L/min) 2 Oxygen Delivery Method Room Air Weight: 233 lb 14.567 oz Body Mass Index (BMI) 34.5 Intake and Output for Last 24 Hours 01/25/19 01/26/19 01/27/19 23:59 23:59 23:59 Intake Total 2200 / 2200 2933.20 / 3063.20 1146.67 / 1146.67 Output Total 200 / 650 1275 / 1475 200 / 200 Balance 2000 / 1550 1658.20 / 1588.20 946.67 / 946.67 Lungs: Clear to auscultation Abdomen: Bowel Sounds Present, Soft, Non Tender Laboratory Results 01/26/19 05:38: WBC 12.8 H, RBC 4.75, Hgb 14.1, Hct 41.0, MCV 86.3, MCH 29.7, MCHC 34.4, RDW Std Deviation 41.7, RDW Coeff of Charlie 13.4, Plt Count 274, MPV 10.8, Immature Gran % (Auto) 0.400, Neut % (Auto) 88.1 H, Lymph % (Auto) 7.1 L, Canyon % (Auto) 4.2, Eos % (Auto) 0.0, Baso % (Auto) 0.2, Absolute Neuts (auto) 11.2 H, Absolute Lymphs (auto) 0.91, Nucleated RBC % 0 01/26/19 05:38: Sodium 142, Potassium 3.4 L, Chloride 108 H, Carbon Dioxide 24.0, Anion Gap 10, BUN 9, Creatinine 0.94, Estim Creat Clear Calc 59.03, Est GFR (MDRD) Af Amer 76, Est GFR (MDRD) Non-Af 63, BUN/Creatinine Ratio 9.6 L, Glucose 123 H, Calcium 8.5 01/26/19 08:40: Carcinoembryonic Ag Pending 01/27/19 05:04: WBC 9.2, RBC 4.07 L, Hgb 12.1, Hct 35.5 L, MCV 87.2, MCH 29.7, MCHC 34.1, RDW Std Deviation 43.4, RDW Coeff of Charlie 13.6, Plt Count 216, MPV 10.1, Immature Gran % (Auto) 0.500, Neut % (Auto) 76.8 H, Lymph % (Auto) 14.1 L, Canyon % (Auto) 7.5, Eos % (Auto) 0.9, Baso % (Auto) 0.2, Absolute Neuts (auto) 7.0, Absolute Lymphs (auto) 1.29, Nucleated RBC % 0 01/27/19 05:04: Sodium 140, Potassium 3.2 L, Chloride 107, Carbon Dioxide 27.0, Anion Gap 6, BUN 13, Creatinine 0.77, Estim Creat Clear Calc 55.49, Est GFR (MDRD) Af Amer 96, Est GFR (MDRD) Non-Af 79, BUN/Creatinine Ratio 17.0, Glucose 91, Calcium 8.1 L Current Medications Acetaminophen (Tylenol Liquid) 650 mg NG Q6H PRN PRN PRN Reason: Pain Score 1-3/Temp > 100.7 F Last Admin: 01/27/19 00:38 Dose: 650 mg Documented by: Hydrocodone Bitart/Acetaminophen ([place] 5mg-325mg) 1 - 2 tablet PO Q4H PRN PRN PRN Reason: Pain Score 1-10/10 Lactated Ringer's () 1,000 mls @ 100 mls/hr IV .Q10H KALYAN Last Admin: 01/27/19 02:25 Dose: 100 mls/hr Documented by: Potassium Chloride () 10 meq in 100 mls @ 100 mls/hr IV BOLUS Q1H KALYAN Stop: 01/27/19 08:44 Ketorolac Tromethamine (Toradol) 15 mg IV Q6H PRN PRN PRN Reason: Pain Score 1-10/10 Last Admin: 01/26/19 20:11 Dose: 15 mg Documented by: Morphine Sulfate () 2 - 4 mg IV Q1H PRN PRN PRN Reason: Pain Score 1-10/10 Last Admin: 01/26/19 16:10 Dose: 2 mg Documented by: Morphine Sulfate () 2 - 4 mg IV Q1H PRN PRN PRN Reason: Pain Score 1-10/10 Ondansetron HCl (Zofran) 4 mg IV Q8H PRN PRN PRN Reason: NAUSEA Last Admin: 01/25/19 22:00 Dose: 4 mg Documented by: Sodium Chloride () 10 - 40 ml IV UD PRN PRN Reason: SALINE FLUSH Last Admin: 01/25/19 22:00 Dose: 10 ml Documented by: Throat Lozenges (Cepacol Sore Throat Lozenge) 2 lozenge MUCOUS MEM Q2H PRN PRN PRN Reason: SORE THROAT Last Admin: 01/26/19 09:33 Dose: 2 lozenge Documented by: Medical Necessity - Tobacco Use Smoking Status: Former smoker Assessment/Plan All Active Problems (Last Updated 01/24/19 @ 14:02 by Nikole Pretty) Small intestine malignant neoplasm (Acute) Partial small bowel obstruction (Acute) Lipoma of left forearm (Acute) Bronchitis (Acute) Sinusitis (Acute) Will DC NG tube. Continue to mobilize patient Routine dressing changes Will initiate clear liquids at noon CEA level still pending
--- NOTE | 2019-01-27 06:28 | PCM.PN.BLA ---
Progress Note Hypokalemia being replaced Patient has history of chronically low potassium. Edmundo Aranda M.D., F.A.C.S.
[2019-01-27 06:34] VITALS: BP 128/71; PULSE 88; RESP 16; TEMP 36.9; O2SAT 94
[2019-01-27] MEDS: Potassium Chloride 10mEq/100mL 10 MEQ/100 ML IV.SOLN. 100 MEQ IV BOLUS ×6 (06:39→21:13)
[2019-01-27 07:15] VITALS: O2SAT 94
[2019-01-27 07:50] VITALS: BP 141/68; PULSE 88; RESP 16; TEMP 37.2; O2SAT 94
[2019-01-27] MEDS: Ketorolac 15 MG/ML Vial IV (11:49)
--- NOTE | 2019-01-27 12:08 | CASEMGMT ---
LW/POA forms not on file, SW let pt and know that the forms are not on file. SW asked pt to bring forms in as able, pt states understanding. BENITO Salas
[2019-01-27 14:00] VITALS: BP 130/66; PULSE 86; RESP 18; TEMP 36.9; O2SAT 98
[2019-01-27 15:36] LABS: Carcinoembryonic Antigen 0.9 ng/mL (0.0-4.7)
--- NOTE | 2019-01-27 16:56 | PCM.PN.BLA ---
Progress Note Excellent progress, stool and flatus Less discomfort Chromosomal Disorders Counselor colored urine Will replace potassium, recheck in a.m. Advance diet STROKE Vital Signs/Narrative: Vital Signs Temp Pulse Resp BP Pulse Ox 01/27/19 14:00 98.5 F 86 18 130/66 H 98
[2019-01-27] MEDS: Lactated Ringers 1,000 ML 50 ML IV (18:27)
--- NOTE | 2019-01-27 20:01 | NURSING ---
pt walked a full lap in the greene. tolerated well.
[2019-01-27 21:03] VITALS: BP 143/77; PULSE 84; RESP 18; TEMP 36.9; O2SAT 92
[2019-01-27] MEDS: HYDROcodone Bitartrate/Apap 5/325 Tablet PO (21:08)
[2019-01-28 04:12] VITALS: BP 130/64; PULSE 78; RESP 16; TEMP 36.8; O2SAT 95
[2019-01-28] MEDS: 0.9% Saline Lock 10 ML Syringe IV (05:54)
[2019-01-28] MEDS: Ketorolac 15 MG/ML Vial IV (05:55)
--- NOTE | 2019-01-28 06:24 | PCM.PN.SRG ---
Patient Problems: Active and Suspected Problems (Last Updated 01/24/19 @ 14:02 by Nikole Pretty) Small intestine malignant neoplasm (Acute) Subjective: Making progress, some burping, less lower gas, no stool overnight, less pain - Physical Exam Vitals/I&O's: Vital Signs Temp Pulse Resp BP Pulse Ox 98.2 F 78 16 130/64 H 95 01/28/19 04:12 01/28/19 04:12 01/28/19 04:12 01/28/19 04:12 01/28/19 04:12 Oxygen Flow Rate (L/min) 2 Oxygen Delivery Method Room Air Weight: 233 lb 14.567 oz Body Mass Index (BMI) 34.5 Intake and Output for Last 24 Hours 01/26/19 01/27/19 01/28/19 23:59 23:59 23:59 Intake Total 2933.20 / 3063.20 4103.34 / 4103.34 400 / 400 Output Total 1275 / 1475 1225 / 1225 950 / 950 Balance 1658.20 / 1588.20 2878.34 / 2878.34 -550 / -550 General: Alert, Oriented x3, Cooperative Lungs: Clear to auscultation Abdomen: Bowel Sounds Present, Soft, Non Tender - wound clean, minimal drainage Laboratory Results 01/26/19 08:40: Carcinoembryonic Ag 0.9 Current Medications Acetaminophen (Tylenol Liquid) 650 mg NG Q6H PRN PRN PRN Reason: Pain Score 1-3/Temp > 100.7 F Last Admin: 01/27/19 00:38 Dose: 650 mg Documented by: Hydrocodone Bitart/Acetaminophen ([place] 5mg-325mg) 1 - 2 tablet PO Q4H PRN PRN PRN Reason: Pain Score 1-10/10 Last Admin: 01/27/19 21:08 Dose: 1 tablet Documented by: Lactated Ringer's () 1,000 mls @ 50 mls/hr IV .Q20H KALYAN Last Admin: 01/27/19 18:27 Dose: 50 mls/hr Documented by: Morphine Sulfate () 2 - 4 mg IV Q1H PRN PRN PRN Reason: Pain Score 1-10/10 Last Admin: 01/26/19 16:10 Dose: 2 mg Documented by: Morphine Sulfate () 2 - 4 mg IV Q1H PRN PRN PRN Reason: Pain Score 1-10/10 Ondansetron HCl (Zofran) 4 mg IV Q8H PRN PRN PRN Reason: NAUSEA Last Admin: 01/25/19 22:00 Dose: 4 mg Documented by: Potassium Chloride (K-Dur) 20 meq PO BIDCM KALYAN Last Admin: 01/27/19 17:14 Dose: 20 meq Documented by: Sodium Chloride () 10 - 40 ml IV UD PRN PRN Reason: SALINE FLUSH Last Admin: 01/28/19 05:54 Dose: 10 ml Documented by: Throat Lozenges (Cepacol Sore Throat Lozenge) 2 lozenge MUCOUS MEM Q2H PRN PRN PRN Reason: SORE THROAT Last Admin: 01/26/19 09:33 Dose: 2 lozenge Documented by: Medical Necessity - Tobacco Use Smoking Status: Former smoker Assessment/Plan All Active Problems (Last Updated 01/24/19 @ 14:02 by Nikole Pretty) Small intestine malignant neoplasm (Acute) Partial small bowel obstruction (Acute) Lipoma of left forearm (Acute) Bronchitis (Acute) Sinusitis (Acute) Will advance diet Lopez advanced Awaiting potassium level Hopeful discharge later today
[2019-01-28 07:12] VITALS: O2SAT 95
[2019-01-28] MEDS: Lactulose 20 GM/30 ML UDC 10 GM PO (07:22)
[2019-01-28 07:51] VITALS: BP 144/87; PULSE 77; RESP 18; TEMP 36.4; O2SAT 96
[2019-01-28 08:08] LABS: Potassium 3.7 mmol/L (3.5-5.1)
--- NOTE | 2019-02-07 09:31 | PCM.DC.SUM ---
Discharge Date and Diagnosis Date of Admission: 01/25/19 Date of Discharge: 01/28/19 - Primary Discharge Diagnosis High-grade partial small bowel obstruction Hospital Course and Treatment Operations: - - Exploratory laparoscopy with laparoscopic mobilization of the right colon and conversion to open right ileocolectomy. Bilateral tap block Summary of Care Provided: The patient is a 68 year old F who presented to our office as an outpatient with a high-grade partial small bowel obstruction. Dr. Aranda performed an Exploratory laparoscopy with laparoscopic mobilization of the right colon and conversion to open right ileocolectomy. Bilateral tap block on 01/25/19. Patient tolerated the procedure well. She had an uneventful hospitalization. Upon discharge, patient denies abdominal pain, nausea, vomiting. She was tolerating her diet well. She denies fever. Positive flatus and BM. She has been instructed on drain care. - Physical Exam Vitals/I&O's: Vital Signs Temp Pulse Resp BP Pulse Ox 97.5 F L 77 18 144/87 H 96 01/28/19 07:51 01/28/19 07:51 01/28/19 07:51 01/28/19 07:51 01/28/19 07:51 Oxygen Flow Rate (L/min) 2 Oxygen Delivery Method Room Air Weight: 233 lb 14.567 oz Body Mass Index (BMI) 34.5 General: Alert, Oriented x3, Cooperative Abdomen: Bowel Sounds Present, Soft, Non Tender Discharge Diet: Light diet - advance as tolerated - if you have questions about your diet instructions, please talk to you doctor. Discharge Activity: May Not Drive - for 3-5 days or while taking narcotic pain medicine. May shower in (days): 0 - You may shower after your Lopez drain is removed Call your doctor if your incision/area has: Continuous Slow Oozing, Sudden Increased Bleeding, Increased Pain/ Swelling, Increased Redness, Foul Smelling Discharge Call your doctor if you observe: Fever of 101 or Higher Suture Line Care: Avoid Pulling/Pushing, Avoid Pinching/Bending Additional Dressing/Incision Instructions:: Change or remove dressing in 2 days. Leave steri-strips in place for 1 week. Home Medications: Medications to take at Discharge naproxen 500 mg tablet 500 mg PO Q12H 04/26/17 hydrochlorothiazide 25 mg tablet 25 mg PO DAILY 10/23/18 multivitamin 1 cap PO DAILY 01/24/19 Krill/Om-3/Dha/Epa/Phospho/Ast [Krill Oil 500 mg Softgel] 500 mg PO DAILY 01/25/19 Primary Care Physician: Rosina Johnson MD [Primary Care Provider] - Please Follow Up With: Edmundo Aranda MD - [phone] When: Call to make an appointment to be seen in about 10 days. Disposition: Home Minutes spent on discharge:: 20 Patient Condition:: Stable Medical Necessity - Tobacco Use Smoking Status: Former smoker Meaningful Use Info Meaningful Use Diagnoses (Choose all that apply): None applicable Code Visit Inpatient E&M: 55458 Disch Hosp - No charge
== END 2019-01-28 11:48 | disposition home or self-care (01) | DRG 828 ==
LOC: MS3 17:56 → PCU 01-26 14:00
PROVIDERS: Admitting Provider Surgery; Family Provider Internal Medicine; PCP Internal Medicine; Referring Provider Surgery; Visit Provider Surgery
PROC: 0DTK0ZZ Resection of Ascending Colon, Open Approach (ICD-10-PCS; CPT 49320; principal; 2019-01-25 15:20)
DX: C7A.8 Other malignant neuroendocrine tumors (principal); Z53.31 Laparoscopic surgical procedure converted to open procedure; C7B.8 Other secondary neuroendocrine tumors; E87.6 Hypokalemia; B02.9 Zoster without complications; Z87.891 Personal history of nicotine dependence; Z90.49 Acquired absence of other specified parts of digestive tract
CPT/HCPCS: 36415; 74019; 74249; 80048; 82378; 84132; 85025; 85027; 88307; 88341; 88342; 93005; 97802; 99251; J7120; A4216; C1760; G0463; J2405; J3490

== ENCOUNTER → 2020-07-18 07:42 | Outpatient (CLI) | payer MEDICARE, SELFPAY ==
[2019-03-02 09:14] VITALS: BMI 34.5
[2020-01-29 15:00] VITALS: BMI 33.0
--- NOTE | 2020-07-18 07:45 | CT_ITS ---
STUDY: CT ABDOMEN AND PELVIS WITH CONTRAST REASON FOR EXAM: Female, 69 years old. MALIGNANT CARCINOID TUMOR OF SMALL INTESTINE RADIATION DOSAGE (If Supplied By Facility): CTDIvol = ( 25.186 ) mGy, DLP = ( 2581.61 ) mGycm TECHNIQUE: Transaxial images were obtained from the dome of the diaphragm to the symphysis pubis without oral contrast. Oral and amp; IV Breeza Neutral and amp; 100mL Isovue-370 was administered. Sagittal and coronal images were reconstructed. Individualized dose optimization techniques were used for this CT. COMPARISON: None. FINDINGS: Minimal increased linear markings in the medial aspect of the right middle lobe suggestive of linear atelectasis and/or scarring. The visualized portions of the heart are within normal limits. There is decreased attenuation of the liver consistent with steatosis. The patient is status post cholecystectomy. Normal spleen. Normal pancreas. Normal bilateral adrenal glands. Normal right kidney. Normal left kidney. Normal visualized stomach. Normal small intestine. Anastomotic suture line is seen in the region of the cecum. There are multiple colonic diverticula consistent with diverticulosis. The appendix is visualized and appears normal. Normal abdominal aorta. Normal inferior vena cava. Normal retroperitoneum. Normal urinary bladder. Normal abdominal wall. There are diffuse degenerative changes of the visualized lumbar spine. Loss of the normal lumbar lordosis. CT/Abdomen/Pelvis WITH Contrast IMPRESSION: An anastomotic suture line is seen in the region of the cecum. Diffuse fatty infiltration of the liver. Electronically Signed: Vipul Mercedes MD at 12:37 EDT , Service support ,
[2020-07-18 08:11] LABS: CREATININE FINGERSTICK 1.3 mg/dL (0.55-1.02)
== END ==
PROVIDERS: PCP Internal Medicine; Referring Provider Internal Medicine Hematology & Oncology; Visit Provider Internal Medicine Hematology & Oncology
DX: C7A.019 Malignant carcinoid tumor of the small intestine, unspecified portion (principal); C7A.095 Malignant carcinoid tumor of the midgut, unspecified
CPT/HCPCS: 74177; Q9967; A4216

== ENCOUNTER 2022-03-09 11:16 | Observation (INO) | payer MEDICARE, SELFPAY ==
[2022-03-05 09:00] LABS: Hematocrit 44.3 % (37-47); Hemoglobin 15.2 g/dL (12.0-15.0); Mean Corp Hgb Conc 34.3 g/dL (32-36); Mean Corpuscular Hgb 30.3 pg (27.0-32.0); Mean Corpuscular Volume 88.2 fL (81-99); Platelet Count 165 K/mm3 (150-450); RBC Distribution Width CV 12.9 % (11.6-14.6); RBC Distribution Width SD 41.6 fl (35.1-43.9); Red Blood Count 5.02 M/mm3 (4.2-5.4); White Blood Count 5.8 K/mm3 (4.4-11.0)
[2022-03-05 09:25] LABS: Anion Gap 6 (5-15); BUN 17 mg/dL (7-18); BUN/Creat Ratio 22.8 RATIO (10-20); Calcium,Total 9.2 mg/dL (8.5-10.1); Chloride 106 mmol/L (98-107); Creatinine, Serum 0.75 mg/dL (0.55-1.02); EST Glomerular Filtration Rate 81 mL/min (>60); Est Glom Filt Rate - Afr Amer 98 mL/min (>60); Glucose 104 mg/dL (74-106); Potassium 3.7 mmol/L (3.5-5.1); Sodium Level 141 mmol/L (136-145)
[2022-03-09] VITALS (15 sets, daily range): BP systolic 102–140; BP diastolic 59–84; PULSE 60–89; RESP 14–18; TEMP 36.4–37.1; O2SAT 92–100; BMI 33.0
[2022-03-09] MEDS: Lactated Ringers 1,000 ML 15 ML IV ×3 (06:38→14:00)
--- NOTE | 2022-03-09 07:05 | PCM.HP.BLA ---
History and Physical Date of Admission: 03/09/22 Allergies No Known Allergies Allergy (Verified 11/21/21 14:49) Medications naproxen 500 mg tablet (Naprosyn) 500 mg PO Q12H pain 04/26/17 [History Confirmed 01/30/22] hydrochlorothiazide 25 mg tablet 25 mg PO DAILY blood pressure 10/23/18 [History Confirmed 01/30/22] multivitamin 1 cap PO DAILY supplement 01/24/19 [History Confirmed 01/30/22] krill 500 mg-omega-3 150 mg-dha 45 mg-epa 75 to-[id number]-tnqfb capsule 500 mg PO DAILY supplement 01/25/19 [History Confirmed 01/30/22] PFSH Medical History? 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 History of appendectomy History of partial colectomy (~01/2019) History of umbilical hernia repair Hx of cholecystectomy Family History? Father Diabetes Parkinson disease Heart disease Osteoporosis Skin cancerMother Arthritis Osteoporosis Skin cancerOther CVA (cerebral vascular accident) Social History? Smoking Status:? Former smoker alcohol intake:? current alcohol intake frequency: a few times a month Alcohol type: wine details:? social substance use type:? does not use caffeine:? Yes what type of physical activity do you participate in:? walking seatbelt use:? always do you feel safe at home:? Yes HPI HPI HPI: 71-year-old female.? She has recently been seen by her oncologist Dr. Alton Neumann.? 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 The patient has been recently evaluated.? She has no symptoms to suggest carcinoid syndrome.? Updated CT scan was obtained through the [facility].? No significant change.? It was felt that the patient could proceed with her ventral incisional hernia repair. 71-year-old female presents to discuss ventral incisional hernia.? I have most recently seen her January 29, 2020.? We discussed repairing the ventral incisional hernia at that time but because of COVID she did elect to defer.? Urgently on January 25, 2019 because of high-grade partial small bowel obstruction I performed a exploratory laparoscopy with laparoscopic mobilization of the right colon conversion to open right ileocolectomy with a bilateral tap block.? Pathology demonstrated an ileocolonic resection with a neuroendocrine tumor measuring 3.5 x 1.5 x 1.5 cm G1 well differentiated.? The tumor invaded through the visceral peritoneum but all margins were clear.? 14 out of 22 lymph nodes were involved.? T4 N2 MX lesion. I do recommend to the patient consideration for repair of her infraumbilical ventral incisional hernia.? Based upon the patient's site of location and body habitus I would propose for her a laparoscopic repair.? It could require placement and mobilization of the urinary bladder to get better securement and coverage.? Would perform a bilateral transabdominal plane block The patient is very pleased with her current evaluation per by Dr. Alton Neumann.? She has been trying to limit the amount of lifting that she has been doing.? She now is interested in scheduling pursuing repair. ROS General General: No weight change, appetite, fatigue, colon cancer, breast cancer or weakness HEENT HEENT: No difficulty swallowing, eye injury, eye surgery, swollen glands or hoarseness Endo Endocrine: No thyroid disease, diabetes mellitus, thyroid cancer, Hair loss, heat intolerance or cold intolerance Musc Musculoskeletal: Yes arthritis; No back problems, rheumatoid arthritis, gout or joint pain Cardio Cardiovascular: No murmur, pacemaker, heart disease, atrial fibrillation, high blood pressure, heart attack, heart stent, palpitations, shortness of breat with exertion or chest pain Psych Psychiatric: No depression, anxiety or hearing voices Resp Respiratory: No shortness of breath, No sleep apnea, No cough, No COPD, Yes asthma, No emphysema and No wheezing Gastro Gastrointestinal: No abdominal pain, No nausea or vomiting, Yes diarrhea, No constipation, No blood in stool, No acid reflux, Yes hemorrhoids, No ulcers, No gallbladder problem and No black,tarry stools Thomas Hematologic: No blood thinners, No blood disorders, No bleeding, No anemia and No blood clots Neuro Neurologic: No weakness Exam Const General: cooperative, healthy appearing, comfortable and no acute distress [facility] Head: normal to inspection Eyes General: appearance normal, both eyes and all related structures Neck Neck: normal visual inspection Chest Chest palpation & inspection: normal inspection of the chest Resp Effort & Inspection: normal respiratory effort Auscultation: clear to auscultation bilaterally Cardio Rate: regular rate Rhythm: regular rhythm GI Palpation: soft and no hepatosplenomegaly Auscultation: normal bowel sounds Other: Overweight, palpable ventral hernia to the left of the midline in the mid infraumbilical area.? Reducible.? Fascial edge palpable. 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 I anticipate access perhaps in the upper abdomen to the left away from her surgery site with a 5 mm Visiport technology to gain inspection as to the exact positioning of the hernia.? Then may consider if need be mobilization of the urinary bladder and patient is aware.? We will likely attempt a direct closure of the fascial defect which may require an incision over that palpable area.? I anticipate bilateral transverses abdominal plane block.? The patient is aware of the early mobilization request.? She is aware of the technique, benefit, risk, alternatives.? She is aware that I am anticipating 6 to 8 weeks of initial recovery.? She has had an opportunity to ask and have questions answered.? We will schedule and proceed at her discretion.? I appreciate the ongoing opportunity of assisting with her surgical care. Copy: Dr. Alton Neumann and Dr. Rosina Aranda M.D., F.A.C.S. I have examined the patient and the H&P has been reviewed. There are no clinical changes since date of exam. Edmundo Aranda M.D., F.A.C.S.
--- NOTE | 2022-03-09 07:22 | DCINST_ITS ---
Discharge Instructions Procedure General Surgery Diet Discharge Diet: Light diet - advance as tolerated (if you have questions about your diet instructions, please talk to you doctor.) Activity Discharge Activity: May Not Drive (for 3-5 days or while taking narcotic pain medicine.) May shower in (days): 1 Lifting Restrictions: 10 pounds Dressing / Incision Call your doctor if your incision/area has: Continuous Slow Oozing, Sudden Increased Bleeding, Increased Pain/ Swelling, Increased Redness and Foul Smelling Discharge Call your doctor if you observe: Fever of 101 or Higher Suture Line Care: Avoid Pulling/Pushing and Avoid Pinching/Bending Additional Dressing/Incision Instructions:: Change or remove dressing in 4 days. Leave steri-strips in place for 1 week. Follow Up Care Please Follow Up With: Edmundo Aranda MD When: Call [phone] to make an appointment to be seen in about 10 days. Test Results: Test results from this visit will be discussed in further detail at your follow- up appointment, if applicable. Discharge Plan Admission Admit Date/Time: 03/09/22 11:16 Primary Reason for Your Visit: Complex ventral incisional hernia and umbilical hernia repair Attending Provider: Edmundo Aranda Primary Care Provider: Rosina Johnson Discharge Orders/Prescriptions Prescriptions: New oxycodone 5 mg Tablet 5 mg PO Q6H PRN PRN (Reason: Pain Score 1-10/10) 4 Days Qty: 12 0RF Continued naproxen [Naprosyn] 500 mg tablet 500 mg PO PRN PRN (Reason: Pain) hydrochlorothiazide 25 mg tablet 25 mg PO PRN PRN (Reason: Blood Pressure) multivitamin capsule capsule 1 cap PO DAILY albuterol sulfate 90 mcg/actuation Hfa Aerosol Inhaler 2 puff INHALATION Q6H PRN (Reason: ASTHMA) apple cider vinegar 500 mg Tablet 500 mg PO DAILY Held [id number]-[id number] 1 EACH capsule 500 mg PO DAILY Hold Instructions: Resume on 03/13/22. turmeric 400 mg Capsule 400 mg PO DAILY Hold Instructions: Resume on 03/13/22. Referrals / Follow Up: Rosina Johnson MD [Primary Care Provider] - Edmundo Aranda MD [Med Staff - Active Staff] - 03/20/22 (Follow-up in 10 days)
[2022-03-09] MEDS: Cefazolin 2 GM in 0.9% Normal Saline 100 ML IV (07:27)
[2022-03-09] MEDS: 0.9% Normal Saline (Pres. free 10 ML Vial (10:14)
[2022-03-09] MEDS: BUPIVACAINE LIPOSOME/PF 20 ML VIAL OPERA.SITE (10:14)
--- NOTE | 2022-03-09 11:05 | OP.PCM_ITS ---
Report of Operation Date of Procedure: 03/09/22 Pre-Operative Diagnosis: Extensive infraumbilical ventral incisional hernia Post-Operative Diagnosis: Extensive infraumbilical ventral incisional hernia Umbilical hernia Bilateral transabdominal plane block Surgery/Procedure Performed:: Laparoscopic ventral incisional herniorrhaphy with partial preperitoneal retropubic placement of ventral light ST mesh 20.3 x 25.4 cm. Lot [id number], reference [id number], expiry date 09/19/2023 Open [address] hernia patch with laparoscopic securing. Lot number [id number], reference [id number], expiry date 04/21/2023 Secure straps x4 Description of Surgical Findings:: Timeout informed consent was obtained. 71-year-old female was taken to the operating placed supine on the table underwent general endotracheal intubation anesthesia. Ancef 2 g were given intravenously. The abdomen was sterilely prepped and draped. Ioban draping was used as well. Throughout the procedure 20 cc of Exparel mixed with 40 cc of 0.25% Marcaine mixed and diluted to 100 cc with saline was used for the bilateral tap block. In the left upper quadrant I used local made a small sideways incision and using a 5 mm Visiport technique at clean access to the abdomen. The abdomen was insufflated with CO2 to a pressure of 10 mmHg pressure. A 5 mm trocar was placed in the left lower quadrant. There were adhesions of greater omentum to the anterior abdominal wall at the superior portion of the ventral incisional hernia these were dense enough that he needed to transect them using a harmonic scalpel complete hemostasis was intact there was no bowel involvement. Then to facilitate care I put 2 5 mm ports in the left abdomen and a 10 mm port directly through the hernia in the infraumbilical midline. I then used a local and did a transabdominal plane block under laparoscopic visualization. This was performed almost from the xiphoid area all the way down into the low abdomen as far as I could comfortably see. Having achieved that now I incised the retroperitoneum superior to the urinary bladder and carefully freed that all the way down to the pubic bone and dissected tissue so that the urinary bladder was carefully freed there was absolutely no bladder injury I done this in 1 large sweeping maneuver to gain access to the retropubic space. Having achieved that I then took the largest ventral light ST mesh that we had put 4 corner sutures of [address] that within the abdomen. Unfurled it in place the smooth side closest to the bowel the distal suture had become dislodged so I then used a grainy needle and a 0 Prolene technique to advance the mesh past the pubic tubercle and put a 0 Prolene in more proximally. I did that through an 11 blade stab incision and I added now 2 more small stab incisions and 2 more 0 Prolene sutures using the [employer] [facility] needle to penetrate the mesh and parachuted the mesh back up to the anterior abdominal wall. I then superiorly secured it laterally secured it with the parachuting technique using grainy needle. Then at the periphery you secure strap. There was malfunction of 1 the secure strap so I had to get a fourth 1. Extensively tried to secure the suprapubically bilateral lower quadrants and then circumferentially all the way around the mesh. I placed a 10 mm port through the hernia sac to allow for dissection I then removed my prior to completing the mesh securing I remove that and use a grainy 0 Vicryl SQ that peritoneal defect. I then had the mesh securely in place and it became apparent that despite using the largest mesh available there was an umbilical hernia that was just at the apex of the mesh so I made a vertical incision in that spot sharp and blunt dissection identify that hernia both internally and externally open the defect placed an 8 cm Ventralex mesh secured the tails with 0 Nurolon approximated the fascia with the same several the sutures secured the previously placed ventral light ST mesh. Then looked internally and I secured the periphery of that venture Fitz mesh with the secure strap assuring good apposition. The retroperitoneum that had been mobilized I secured that with a combination of grainy needle and 0 Vicryl sutures helping secure the peritoneum up to the mesh as well to secure strap. Had the inferior portion of the mesh nicely protected the greater omentum was placed overlying the small bowel and there was excellent omental coverage. Inspection revealed that all hernias now were covered with mesh. I additionally placed 0 Prolene grainy needles placed sutures in both the right and left lower quadrant to help further secure the mesh in that location. Deflate of the 2 CO2. All wounds were approximated with running or interrupted 4-0 Monocryl subdermal stitches. Steri-Strips Telfa OpSite dressings applied. Sponge and instrument needle counts were reported to the surgeon to be correct Specimen none. Drains none. Blood loss minimal. The patient was taken to the recovery area in satisfactory addition without a pparent complication Edmundo Aranda M.D., F.A.C.S. Surgeon: Edmundo Aranda Type of Anesthesia: Block,Regional and General Anesthesiologist: Jesse Perry
[2022-03-09] MEDS: Cefazolin 1 GM/50 ML BAG IV (15:45)
[2022-03-09] MEDS: oxyCODONE 5 MG Tablet PO ×2 (15:53→22:05)
--- NOTE | 2022-03-09 16:45 | PCM.PN.SRG ---
Subjective Subjective Patient is lying in bed. She is comfortable. No nausea. No flatus. Objective Data Objective Data Vital Signs: Vital Signs Temp Pulse Resp BP Pulse Ox O2 Del Method O2 Flow Rate 97.9 F 66 16 116/66 94 Room Air 2 03/09/22 16:06 03/09/22 16:06 03/09/22 16:06 03/09/22 16:06 03/09/22 16:06 03/09/22 16:06 03/09/22 13:30 Oxygen Flow Rate (L/min) 2 Oxygen Delivery Method Room Air Weight: 220 lb 7.396 oz Body Mass Index (BMI) 33.0 Intake & Output: Intake and Output for Last 24 Hours 03/07/22 03/08/22 03/09/22 23:59 23:59 23:59 Intake Total 2160 / 2160 Balance 2160 / 2160 Lab / Micro Data Result Diagrams: 03/05/22 08:13 03/05/22 08:13 Physical Exam Resp Resp Narrative: Good respiratory effort. GI GI Narrative: Abdominal binder in place Assessment & Plan Assessment/Plan (1) Ventral incisional hernia without obstruction or gangrene: (2) Umbilical hernia without obstruction or gangrene: PLAN: Plan Patient is comfortable postop day 0. I encourage mobilization. She has not yet voided. Edmundo Aranda M.D., F.A.C.S.
[2022-03-10 03:59] VITALS: BP 117/62; PULSE 73; RESP 18; TEMP 36.6; O2SAT 93
[2022-03-10] MEDS: Acetaminophen 325 MG Tablet 650 MG PO ×2 (04:15→14:07)
[2022-03-10] MEDS: oxyCODONE 5 MG Tablet PO ×2 (04:16→09:54)
[2022-03-10 05:55] LABS: Absolute Lymphocyte Count 1.62 X10^3/uL (0.83-4.51); Absolute Neutrophil Count 6.4 X10^3/uL (2.0-7.7); Basophil# 0.01 X10^3/uL; Basophil% 0.1 % (0-1); Hemoglobin 12.6 g/dL (12.0-15.0); Lymphocyte # 1.62 X10^3/ul (0.83-4.51); Lymphocyte % 18.8 % (19-41); Mean Corp Hgb Conc 34.1 g/dL (32-36); Mean Corpuscular Hgb 30.7 pg (27.0-32.0); Mean Platelet Vol. 11.3 fl (6.2-12.0); Monocyte# 0.61 X10^3/uL; Monocyte% 7.1 % (0-10); NRBC Flagged by Analyzer 0 % (0-5); Neutrophil # 6.37 X10^3/uL (2.7-7.7); Neutrophil % 73.7 % (47-70); Platelet Count 159 K/mm3 (150-450); RBC Distribution Width SD 42.8 fl (35.1-43.9); Red Blood Count 4.11 M/mm3 (4.2-5.4); White Blood Count 8.6 K/mm3 (4.4-11.0)
--- NOTE | 2022-03-10 06:39 | PCM.PN.SRG ---
Subjective Subjective 71-year-old female. She is postop day 1 after a complicated ventral incisional hernia repair done laparoscopically with addition of an umbilical hernia repair. She actually is quite comfortable today which she is rather amazing based upon the extent of surgery performed. No nausea. No flatus Objective Data Objective Data Vital Signs: Vital Signs Temp Pulse Resp BP Pulse Ox O2 Del Method O2 Flow Rate 97.9 F 73 18 117/62 93 Room Air 2 03/10/22 03:59 03/10/22 03:59 03/10/22 03:59 03/10/22 03:59 03/10/22 03:59 03/10/22 03:59 03/09/22 13:30 Oxygen Flow Rate (L/min) 2 Oxygen Delivery Method Room Air Weight: 220 lb 7.396 oz Body Mass Index (BMI) 33.0 Intake & Output: Intake and Output for Last 24 Hours 03/08/22 03/09/22 03/10/22 23:59 23:59 23:59 Intake Total 2534 / 2534 0 / 0 Balance 2534 / 2534 0 / 0 Lab / Micro Data Result Diagrams: 03/10/22 04:42 03/05/22 08:13 Labs: Laboratory Results - last 24 hr 03/10/22 04:42: WBC 8.6, RBC 4.11 L, Hgb 12.6, Hct 37.0, MCV 90.0, MCH 30.7, MCHC 34.1, RDW Std Deviation 42.8, RDW Coeff of Charlie 13.0, Plt Count 159, MPV 11.3, Immature Gran % (Auto) 0.300, Neut % (Auto) 73.7 H, Lymph % (Auto) 18.8 L, [place] % (Auto) 7.1, Eos % (Auto) 0.0, Baso % (Auto) 0.1, Absolute Neuts (auto) 6.4, Absolute Lymphs (auto) 1.62, Nucleated RBC % 0 Physical Exam Resp normal respiratory effort GI GI Narrative: Soft, overweight, nontender, dressings all dry and intact, bowel sounds nonspecific Assessment & Plan Assessment/Plan (1) Umbilical hernia without obstruction or gangrene: (2) Ventral incisional hernia without obstruction or gangrene: PLAN: Plan The patient is making good progress. I will advance to full liquids. Hopeful discharge later today if she initiates passing flatus. I have provided her extensive verbal discharge instructions regarding activity wound care and diet. Edmundo Aranda M.D., F.A.C.S.
[2022-03-10 06:40] LABS: Anion Gap 8 (5-15); BUN 11 mg/dL (7-18); BUN/Creat Ratio 15.6 RATIO (10-20); Calcium,Total 8.6 mg/dL (8.5-10.1); Chloride 104 mmol/L (98-107); EST Glomerular Filtration Rate 87 mL/min (>60); Est Glom Filt Rate - Afr Amer 105 mL/min (>60); Glucose 106 mg/dL (74-106); Potassium 3.6 mmol/L (3.5-5.1); Sodium Level 138 mmol/L (136-145)
[2022-03-10 09:12] VITALS: BP 99/73; PULSE 65; RESP 16; TEMP 36.8; O2SAT 96
--- NOTE | 2022-03-10 10:39 | CASEMGMT ---
ALEX CM in to discuss HODGE form with patient. RN CM explained HODGE form, patient voiced understanding. Pt signed form and filed in chart. Pt provided with a copy of signed HODGE form. Patient had no further questions or concerns at this time.
[2022-03-10] MEDS: Lactulose 20 GM/30 ML UDC 10 GM PO (13:45)
[2022-03-10 15:27] VITALS: BP 122/63; PULSE 82; RESP 17; TEMP 36.9; O2SAT 100
== END 2022-03-10 16:43 | disposition home or self-care (01) ==
LOC: SDC 12:24 → MS3 03-10 09:27
PROVIDERS: Admitting Provider Surgery; PCP Internal Medicine; Referring Provider Surgery; Visit Provider Surgery
PROC: 0WQF4ZZ Repair Abdominal Wall, Percutaneous Endoscopic Approach (ICD-10-PCS; CPT 49595; principal; 2022-03-09 07:10)
DX: K43.2 Incisional hernia without obstruction or gangrene (principal); C7A.8 Other malignant neuroendocrine tumors; C7A.019 Malignant carcinoid tumor of the small intestine, unspecified portion; Z87.891 Personal history of nicotine dependence; K42.9 Umbilical hernia without obstruction or gangrene; M19.90 Unspecified osteoarthritis, unspecified site; E78.00 Pure hypercholesterolemia, unspecified; Z79.899 Other long term (current) drug therapy; M99.03 Segmental and somatic dysfunction of lumbar region; M99.02 Segmental and somatic dysfunction of thoracic region; M99.05 Segmental and somatic dysfunction of pelvic region
CPT/HCPCS: 49595; 00752; 96365; 36415; 80048; 85025; 85027; 93005; 99221; J7120; C1781; G0378; J2405; J3490

== ENCOUNTER 2022-03-10 19:25 | Inpatient (IN) | payer MEDICARE, SELFPAY ==
--- NOTE | 2022-03-10 19:20 | HP.PCM.SX_ITS ---
HPI - General General Date of Admission: 03/10/22 Chief Complaint: Nominal pain severe nausea HPI Narrative KAR HODGE, is a 71 F who presents back to the hospital. She was literally just discharged couple hours sooner. She is postop day 1 status post a laparosc opic ventral incisional hernia repair and umbilical hernia pair with mesh. She was feeling well mid afternoon today tolerating liquid diet. Simms that she had made sufficient coverage for discharge. Couple hours after getting home she developed severe lower abdominal pressure pain followed by nausea. She has not had emesis. She was fearful that she would disrupt her hernia repair. I requested that she return to the hospital for direct admission. [facility] Medical History (Updated 03/10/22 @ 19:[address] 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 Former smoker Gastrointestinal problem Hemorrhoids High cholesterol History of echocardiogram History of edema Knee pain Lipoma of left forearm Osteoarthritis Partial small bowel obstruction Post-menopausal Wears contact lenses Wears glasses Home Medications naproxen 500 mg tablet (Naprosyn) 500 mg PO PRN PRN Pain 04/26/17 [History Last Taken 03/03/22] hydrochlorothiazide 25 mg tablet 25 mg PO PRN PRN Blood Pressure 10/23/18 [History Last Taken 03/08/22] multivitamin 1 cap PO DAILY supplement 01/24/19 [History Last Taken 03/08/22 10:00] krill 500 mg-omega-3 150 mg-dha 45 mg-epa 75 [id number] capsule 500 mg PO DAILY supplement 01/25/19 [History Last Taken 03/08/22 10:00] albuterol sulfate 90 mcg/actuation aerosol inhaler 2 puff inhalation Q6H PRN ASTHMA 02/26/22 [History Last Taken Unknown] apple cider vinegar 500 mg tablet 500 mg PO DAILY Check with primary doctor 02/26/22 [History Last Taken 03/08/22 10:00] turmeric 400 mg capsule 400 mg PO DAILY 02/26/22 [History Last Taken 03/08/22 10:00] oxycodone 5 mg tablet 5 mg PO Q6H PRN PRN Pain Score 1-10/10 4 days #12 tabs 03/10/22 [Rx Last Taken Unknown] Allergy/AdvReac Type Severity Reaction Status Date / Time No Known Allergies Allergy Verified 02/26/22 08:26 Family History Father Diabetes Parkinson disease Heart disease Osteoporosis Skin cancer Mother Arthritis Osteoporosis Skin cancer Other CVA (cerebral vascular accident) Surgical History (Updated 02/26/22 @ 08:39 by Tanya Reagan) History of appendectomy History of dental surgery History of myringotomy History of partial colectomy (~01/2019) History of umbilical hernia repair Hx of cholecystectomy Social History Smoking Status: Former smoker alcohol intake: current alcohol intake frequency: a few times a month Alcohol type: wine details: social substance use type: does not use caffeine: Yes what type of physical activity do you participate in: walking seatbelt use: always do you feel safe at home: Yes Physical Exam Narrative Alert. Appears uncomfortable. Does not appear in extremis. Resp normal respiratory effort GI GI Narrative: Abdomen is grossly distended, mild diffusely tender, no focal areas of extreme tenderness, quiet bowel sounds. Dressings clean and dry Assessment & Plan Assessment/Plan (1) Postoperative ileus: PLAN: Patient will be admitted and conservative measures instituted. I will keep her n.p.o. except sips and chips. Heating pad has been prescribed and ambulation as she tolerates. Antiemetics and pain medicine provided as needed. Serial examinations. Edmundo Aranda M.D., F.A.C.S.
[2022-03-10 20:33] VITALS: BP 158/80; PULSE 75; RESP 18; TEMP 36.6; O2SAT 95
[2022-03-10] MEDS: Lactated Ringers 1,000 ML 75 ML IV (20:33)
[2022-03-10] MEDS: Ondansetron 4 MG/2 ML Vial IV (20:48)
[2022-03-10] MEDS: Morphine 2 MG/ML Syringe IV ×2 (20:48→22:20)
[2022-03-10 20:56] VITALS: BMI 35.4
[2022-03-10 21:40] LABS: Absolute Lymphocyte Count 1.63 X10^3/uL (0.83-4.51); Basophil# 0.03 X10^3/uL; Basophil% 0.3 % (0-1); Eosinophil# 0.08 X10^3/uL; Eosinophils% 0.8 % (0-5); Hematocrit 38.9 % (37-47); Hemoglobin 13.2 g/dL (12.0-15.0); Lymphocyte # 1.63 X10^3/ul (0.83-4.51); Lymphocyte % 17.2 % (19-41); Mean Corp Hgb Conc 33.9 g/dL (32-36); Mean Corpuscular Hgb 30.3 pg (27.0-32.0); Mean Corpuscular Volume 89.2 fL (81-99); Mean Platelet Vol. 10.8 fl (6.2-12.0); Monocyte# 0.63 X10^3/uL; Monocyte% 6.7 % (0-10); NRBC Flagged by Analyzer 0 % (0-5); Neutrophil # 7.02 X10^3/uL (2.7-7.7); Neutrophil % 74.4 % (47-70); Platelet Count 147 K/mm3 (150-450); RBC Distribution Width CV 12.6 % (11.6-14.6); RBC Distribution Width SD 41.5 fl (35.1-43.9); Red Blood Count 4.36 M/mm3 (4.2-5.4); White Blood Count 9.5 K/mm3 (4.4-11.0)
[2022-03-10 21:52] LABS: Anion Gap 7 (5-15); BUN 10 mg/dL (7-18); BUN/Creat Ratio 13.8 RATIO (10-20); Calcium,Total 8.6 mg/dL (8.5-10.1); Chloride 100 mmol/L (98-107); Creatinine, Serum 0.72 mg/dL (0.55-1.02); EST Glomerular Filtration Rate 84 mL/min (>60); Est Glom Filt Rate - Afr Amer 102 mL/min (>60); Glucose 111 mg/dL (74-106); Potassium 3.3 mmol/L (3.5-5.1); Sodium Level 134 mmol/L (136-145)
--- NOTE | 2022-03-10 22:08 | NURSING ---
pt ambulated in the greene. pt made it to the nurses station and then because nauseated. pt returned to room and got into bed. Nausea resolved when pt returned to bed.
[2022-03-10] MEDS: 0.9% Saline Lock 10 ML Syringe IV (22:20)
[2022-03-11] VITALS (9 sets, daily range): BP systolic 113–144; BP diastolic 63–93; PULSE 18–96; RESP 16–77; TEMP 36.7–37.2; O2SAT 92–94
[2022-03-11] MEDS: Lactated Ringers 1,000 ML 75 ML IV (00:19)
--- NOTE | 2022-03-11 00:26 | NURSING ---
pt walked a 1/2 lap in the greene. tolerated well.
[2022-03-11] MEDS: Acetaminophen 325 MG Tablet 650 MG PO ×2 (03:10→16:16)
[2022-03-11] MEDS: Potassium Chloride 10mEq/100mL 10 MEQ/100 ML IV.SOLN. 100 MEQ IV BOLUS ×3 (05:27→09:08)
--- NOTE | 2022-03-11 06:13 | PCM.PN.SRG ---
Subjective Subjective Feels much better than last night. 2 small amounts of flatus. Still some lower abdominal pain and feels distended. Nausea has resolved Objective Data Objective Data Vital Signs: Vital Signs Temp Pulse Resp BP Pulse Ox O2 Del Method 97.9 F 75 18 158/80 H 95 Room Air 03/10/22 20:33 03/10/22 20:33 03/10/22 20:33 03/10/22 20:33 03/10/22 20:33 03/10/22 22:00 Oxygen Delivery Method Room Air Weight: 236 lb 1.841 oz Body Mass Index (BMI) 35.4 Intake & Output: Intake and Output for Last 24 Hours 03/09/22 03/10/22 03/11/22 23:59 23:59 23:59 Intake Total 282.5 / 282.5 Balance 282.5 / 282.5 Lab / Micro Data Result Diagrams: 03/10/22 21:28 03/10/22 21:28 Labs: Laboratory Results - last 24 hr 03/10/22 21:28: WBC 9.5, RBC 4.36, Hgb 13.2, Hct 38.9, MCV 89.2, MCH 30.3, MCHC 33.9, RDW Std Deviation 41.5, RDW Coeff of Charlie 12.6, Plt Count 147 L, MPV 10.8, Immature Gran % (Auto) 0.600, Neut % (Auto) 74.4 H, Lymph % (Auto) 17.2 L, [place] % (Auto) 6.7, Eos % (Auto) 0.8, Baso % (Auto) 0.3, Absolute Neuts (auto) 7.0, Absolute Lymphs (auto) 1.63, Nucleated RBC % 0 03/10/22 21:28: Sodium 134 L, Potassium 3.3 L, Chloride 100, Carbon Dioxide 27.0, Anion Gap 7, BUN 10, Creatinine 0.72, Estim Creat Clear Calc 51.30, Est GFR (MDRD) Af Amer 102, Est GFR (MDRD) Non-Af 84, BUN/Creatinine Ratio 13.8, Glucose 111 H, Calcium 8.6 Assessment & Plan Assessment/Plan (1) Postoperative ileus: PLAN: Patient appears to be much more comfortable than last night. The nausea and very severe abdominal pain has ceased. She has had some flatus. We will continue to encourage ambulation. We will reinitiate a diet and trim IV fluids. Minimal hypokalemia is being replaced. Edmundo Aranda M.D., F.A.C.S.
--- NOTE | 2022-03-11 06:25 | DCINST_ITS ---
Discharge Instructions Procedure General Surgery Diet Discharge Diet: Light diet - advance as tolerated (if you have questions about your diet instructions, please talk to you doctor.) Activity Discharge Activity: May Not Drive (for 3-5 days or while taking narcotic pain medicine.) May shower in (days): 1 Lifting Restrictions: 10 pounds Dressing / Incision Call your doctor if your incision/area has: Continuous Slow Oozing, Sudden Increased Bleeding, Increased Pain/ Swelling, Increased Redness and Foul Smelling Discharge Call your doctor if you observe: Fever of 101 or Higher Suture Line Care: Avoid Pulling/Pushing and Avoid Pinching/Bending Additional Dressing/Incision Instructions:: Change or remove dressing in 3 days. Leave steri-strips in place for 1 week. Follow Up Care Please Follow Up With: Edmundo Aranda MD When: Call [phone] to make an appointment to be seen in about 10 days. Please resume the previously provided preoperative instructions and office follow-up Test Results: Test results from this visit will be discussed in further detail at your follow- up appointment, if applicable. Discharge Plan Admission Admit Date/Time: 03/10/22 19:06 Attending Provider: Edmundo Aranda Primary Care Provider: Rosina Johnson Discharge Orders/Prescriptions Prescriptions: No Action naproxen [Naprosyn] 500 mg tablet 500 mg PO PRN PRN (Reason: Pain) hydrochlorothiazide 25 mg tablet 25 mg PO PRN PRN (Reason: Blood Pressure) multivitamin capsule capsule 1 cap PO DAILY [id number]-kvy-[id number]-rvuckeh-ast 1 EACH capsule 500 mg PO DAILY Hold Instructions: Resume on 03/13/22. albuterol sulfate 90 mcg/actuation Hfa Aerosol Inhaler 2 puff INHALATION Q6H PRN (Reason: ASTHMA) apple cider vinegar 500 mg Tablet 500 mg PO DAILY turmeric 400 mg Capsule 400 mg PO DAILY Hold Instructions: Resume on 03/13/22. oxycodone 5 mg Tablet 5 mg PO Q6H PRN PRN (Reason: Pain Score 1-10/10) 4 Days Qty: 12 0RF Referrals / Follow Up: Rosina Johnson MD [Primary Care Provider] -
[2022-03-11] MEDS: Enoxaparin 40 MG/0.4 ML Syringe SC (06:44)
[2022-03-11] MEDS: Morphine 2 MG/ML Syringe IV ×2 (08:49→12:47)
--- NOTE | 2022-03-11 10:25 | CASEMGMT ---
ALEX GOODRICH Assessment: Face to Face with pt for initial transition planning/care coordination assessment. RN JOLEEN introduced self and role at [facility], pt voices understanding and consents to assessment. Pt is A/O x4 and answers all questions appropriately at this time. Pt sitting up in chair in no distress. Care providers, pharmacy, and demographics verified/updated. Admitting Dx: direct admit PCP:Elizabeth Specialists:Manoj OR; Thienonc Preferred Pharmacy: [facility] Retail Insurance:[employer] [facility] Prescription Benefit: yes LNOK: Alexey Samson, Living Arrangements: Pt lives with in a two story home with 3 steps to enter with a rail. Pt reports she is I in ADL's and denies concerns at home. Transportation: Pt drives self and denies concerns with transportation. DME/HHC/SNF: Pt denies having any DME in the home, previous HHC or SNF stays. Pt states no concerns with going home at time of dc. Pt states no further concerns/needs. CM to follow. Advised pt to ask CM if any further question/concerns/needs arise, voices understanding. Pt asks for student nurse at end of assessment to assit to bathroom, notified student nurse. Pt Goal: Home Plan: Home
[2022-03-11] MEDS: Ondansetron 4 MG/2 ML Vial IV (18:34)
--- NOTE | 2022-03-11 20:07 | NURSING ---
pt walked a full lap in the greene. tolerated well.
--- NOTE | 2022-03-11 21:41 | NURSING ---
pt passed flatus.
[2022-03-11] MEDS: Lactated Ringers 1,000 ML 30 ML IV (21:44)
[2022-03-12 03:11] VITALS: BP 135/79; PULSE 84; RESP 18; TEMP 36.6; O2SAT 95
[2022-03-12] MEDS: Enoxaparin 40 MG/0.4 ML Syringe SC (05:24)
[2022-03-12] MEDS: Ondansetron 4 MG/2 ML Vial IV (05:24)
[2022-03-12 09:35] VITALS: BP 123/74; PULSE 85; RESP 18; TEMP 37.1; O2SAT 95
--- NOTE | 2022-03-12 10:30 | PCM.PN.SRG ---
Subjective Subjective Patient is a 71 y/o F I am following for a post-operative ileus s/p laparoscopic ventral incisional hernia repair on 03/09/22. Patient notes she has passed flatus multiple times. She has gone on multiple walks. She notes nausea has improved. She denies vomiting. She has had a very small bowel movement. She notes food or liquids do not sound good. She has been tolerating ice chips. Objective Data Objective Data Vital Signs: Vital Signs Temp Pulse Resp BP Pulse Ox O2 Del Method O2 Flow Rate 98.7 F 85 18 123/74 H 95 Room Air 2 03/12/22 09:35 03/12/22 09:35 03/12/22 09:35 03/12/22 09:35 03/12/22 09:35 03/12/22 09:38 03/11/22 14:53 Oxygen Flow Rate (L/min) 2 Oxygen Delivery Method Room Air Weight: 236 lb 1.841 oz Body Mass Index (BMI) 35.4 Intake & Output: Intake and Output for Last 24 Hours 03/10/22 03/11/22 03/12/22 23:59 23:59 23:59 Intake Total 2532.5 / 2532.5 100 / 100 Output Total 200 / 200 400 / 400 Balance -200 / -200 2132.5 / 2132.5 100 / 100 Lab / Micro Data Result Diagrams: 03/10/22 21:28 03/10/22 21:28 Physical Exam GI GI Narrative: Abdomen- soft, bowel sounds present. Generalized tenderness. Incisions c/d/i. Assessment & Plan Assessment/Plan (1) Postoperative ileus: PLAN: Plan Plan to continue with conservative measures Reassess patient later today Continue ambulation We will continue to follow patient Charges/Coding Visit Charges Inpatient E&M: 52397 Subs Hosp L1 (post-op; no charge)
[2022-03-12] MEDS: Acetaminophen 325 MG Tablet 650 MG PO ×2 (10:36→20:58)
--- NOTE | 2022-03-12 11:42 | CASEMGMT ---
Social Work SW in to pt room to verify AD. Pt confirmed has a HCPOA and LW and named Alexey as agent. SW informed these documents not on file with [facility] and copies can be brought in to be scanned to file if pt wishes. Pt and voiced understanding. DANIEL Ross
--- NOTE | 2022-03-12 11:44 | CASEMGMT ---
Social Work SW in to pt room to verify AD. Pt confirmed has a HCPOA and LW and named Alexey as agent. SW informed these documents not on file with [facility] and copies can be brought in to be scanned to file if pt wishes. Pt and voiced understanding. DANIEL Ross
[2022-03-12 13:03] VITALS: BP 120/81; PULSE 90; RESP 18; TEMP 37.3; O2SAT 92
[2022-03-12 17:09] VITALS: BP 115/60; PULSE 85; RESP 18; TEMP 36.6; O2SAT 93
[2022-03-12 20:10] VITALS: BP 124/70; PULSE 75; RESP 18; TEMP 36.7; O2SAT 94
[2022-03-13 02:00] VITALS: BP 118/79; PULSE 84; RESP 18; TEMP 36.7; O2SAT 95
[2022-03-13] MEDS: Acetaminophen 325 MG Tablet 650 MG PO ×2 (03:27→11:45)
--- NOTE | 2022-03-13 05:24 | DS.PCM_ITS ---
Providers Date of Admission: 03/10/22 Primary Care Physician: Dr. Rosina Johnson MD Reason For Visit: POST OP ILEUS Diagnosis Discharge Diagnosis (1) Postoperative ileus: Status: Acute Code(s): K91.89 - Other postprocedural complications and disorders of digestive system; K56.7 - Ileus, unspecified Plan: Patient appears to be much more comfortable than last night. The nausea and very severe abdominal pain has ceased. She has had some flatus. We will continue to encourage ambulation. We will reinitiate a diet and trim IV fluids. Minimal hypokalemia is being replaced. Edmundo Aranda M.D., F.A.C.S. Plan Postoperative ileus resolved without intervention and simple time to resolution. IV fluids administered while awaiting spontaneous resumption of bowel function. Plan for previously arranged for outpatient office follow-up. No additional me dication changes or additions. Edmundo Aranda M.D., F.A.C.S. Medications at Discharge Home Medications naproxen 500 mg tablet (Naprosyn) 500 mg PO PRN PRN Pain 04/26/17 hydrochlorothiazide 25 mg tablet 25 mg PO PRN PRN BLE swelling 10/23/18 multivitamin 1 cap PO DAILY supplement 01/24/19 krill 500 mg-omega-3 150 mg-dha 45 mg-epa 75 [id number]-wmewtfy-uguns capsule 500 mg PO DAILY supplement 01/25/19 albuterol sulfate 90 mcg/actuation aerosol inhaler 2 puff inhalation Q6H PRN ASTHMA 02/26/22 apple cider vinegar 500 mg tablet 500 mg PO DAILY Check with primary doctor 02/26/22 turmeric 400 mg capsule 400 mg PO DAILY 02/26/22 oxycodone 5 mg tablet 5 mg PO Q6H PRN PRN Pain Score 1-10/10 4 days #12 tabs 03/10/22 Hospital Course Summary of Care Provided Hospital Course: The patient was readmitted treated with IV fluids and pain medicine s pontaneously resolved her postoperative ileus and was discharged with unchanged postoperative instructions. Edmundo Aranda M.D., F.A.C.S. Weight / BMI Weight Weight: 236 lb 1.841 oz Body Mass Index (BMI) 35.4 ABG / Lab / Microbiology Data Result Diagrams: 03/10/22 21:28 03/10/22 21:28 D/C Instructions Discharge Diet: Light diet - advance as tolerated (if you have questions about your diet instructions, please talk to you doctor.) May shower in (days): 1 Call your doctor if your incision/area has: Continuous Slow Oozing, Sudden Increased Bleeding, Increased Pain/ Swelling, Increased Redness and Foul Smelling Discharge Call your doctor if you observe: Fever of 101 or Higher Suture Line Care: Avoid Pulling/Pushing and Avoid Pinching/Bending Additional Dressing/Incision Instructions: Change or remove dressing in 3 days. Leave steri-strips in place for 1 week. Please Follow Up With: Edmundo Aranda MD When: Call [phone] to make an appointment to be seen in about 10 days. Please resume the previously provided preoperative instructions and office follow-up Meaningful Use Info Meaningful Use Diagnoses (Choose all that apply): None applicable Discharge Plan Admission Admit Date/Time: 03/10/22 19:25 Primary Reason for Your Visit: post-operative ileus Attending Provider: Edmundo Aranda Primary Care Provider: Rosina Johnson Discharge Orders/Prescriptions Prescriptions: Continued naproxen [Naprosyn] 500 mg tablet 500 mg PO PRN PRN (Reason: Pain) hydrochlorothiazide 25 mg tablet 25 mg PO PRN PRN (Reason: BLE swelling ) multivitamin capsule capsule 1 cap PO DAILY [id number]-hjrworl-ast 1 EACH capsule 500 mg PO DAILY Hold Instructions: Resume on 03/13/22. albuterol sulfate 90 mcg/actuation Hfa Aerosol Inhaler 2 puff INHALATION Q6H PRN (Reason: ASTHMA) apple cider vinegar 500 mg Tablet 500 mg PO DAILY turmeric 400 mg Capsule 400 mg PO DAILY Hold Instructions: Resume on 03/13/22. oxycodone 5 mg Tablet 5 mg PO Q6H PRN PRN (Reason: Pain Score 1-10/10) 4 Days Qty: 12 0RF Referrals / Follow Up: Rosina Johnson MD [Primary Care Provider] - Edmundo Aranda MD [Med Staff - Active Staff] - 03/24/22 1:00 pm (Your appointment has been scheduled for 03/24 at 1:00 pm.) Disposition Disposition (needs filled in before D/C Order can be placed): Home, Self Care
[2022-03-13] MEDS: Enoxaparin 40 MG/0.4 ML Syringe SC (05:29)
[2022-03-13] MEDS: Lactated Ringers 1,000 ML 30 ML IV (05:33)
--- NOTE | 2022-03-13 06:03 | PCM.PN.SRG ---
Subjective Subjective Patient is now having diffuse watery diarrhea. Abdominal girth is diminished. Minimal abdominal pain. No nausea. Admittedly no appetite. No bright red blood per rectum or melena. No foul odor Objective Data Objective Data Vital Signs: Vital Signs Temp Pulse Resp BP Pulse Ox O2 Del Method O2 Flow Rate 98.1 F 84 18 118/79 95 Room Air 2 03/13/22 02:00 03/13/22 02:00 03/13/22 02:00 03/13/22 02:00 03/13/22 02:00 03/13/22 02:00 03/11/22 14:53 Oxygen Flow Rate (L/min) 2 Oxygen Delivery Method Room Air Weight: 236 lb 1.841 oz Body Mass Index (BMI) 35.4 Intake & Output: Intake and Output for Last 24 Hours 03/11/22 03/12/22 03/13/22 23:59 23:59 23:59 Intake Total 2532.5 / 2532.5 800 / 950 1104.5 / 1104.5 Output Total 400 / 400 Balance 2132.5 / 2132.5 800 / 950 1104.5 / 1104.5 Lab / Micro Data Result Diagrams: 03/10/22 21:28 03/10/22 21:28 Physical Exam GI GI Narrative: Soft, appropriately tender Assessment & Plan Assessment/Plan (1) Postoperative ileus: PLAN: Postoperative ileus resolved now replaced with a loose diarrhea. The patient preoperatively always has urgent and loose stools. We will provide an antidiarrheal. Recheck later today and anticipate discharge home. Edmundo Aranda M.D., F.A.C.S.
[2022-03-13] MEDS: Diphenoxylate/Atrop 1 Tablet 2 TABLET PO (06:29)
[2022-03-13 08:08] VITALS: BP 133/80; PULSE 80; RESP 18; TEMP 36.6; O2SAT 95
[2022-03-13 08:39] VITALS: BP 133/80; PULSE 80; RESP 18; TEMP 36.6; O2SAT 95
[2022-03-13 14:00] VITALS: BP 124/77; PULSE 74; RESP 18; TEMP 36.6; O2SAT 96
[2022-03-13 15:37] VITALS: BP 124/77; PULSE 74; RESP 18; TEMP 36.6; O2SAT 96
== END 2022-03-13 16:33 | disposition home or self-care (01) | DRG 354 ==
PROVIDERS: Admitting Provider Surgery; PCP Internal Medicine; Visit Provider Surgery
DX: K91.89 Other postprocedural complications and disorders of digestive system (principal); K56.7 Ileus, unspecified; C7A.8 Other malignant neuroendocrine tumors; C7A.019 Malignant carcinoid tumor of the small intestine, unspecified portion; K42.9 Umbilical hernia without obstruction or gangrene; E78.00 Pure hypercholesterolemia, unspecified; K43.2 Incisional hernia without obstruction or gangrene; M19.90 Unspecified osteoarthritis, unspecified site; M99.02 Segmental and somatic dysfunction of thoracic region; M99.03 Segmental and somatic dysfunction of lumbar region; M99.05 Segmental and somatic dysfunction of pelvic region; Z90.49 Acquired absence of other specified parts of digestive tract; Z79.899 Other long term (current) drug therapy; Z87.891 Personal history of nicotine dependence
CPT/HCPCS: 36415; 80048; 85025; 96365; 99221; J7120; A4216; C1781; G0378; J2405; J3490